=== PATIENT | female | born 1945 | race Caucasian/White ===

== ENCOUNTER 2018-06-10 09:59 | Inpatient (IN) ==
--- NOTE | 2018-06-10 10:24 | ED ---
HPI General Chief Complaint: Fall Stated Complaint: confusion/Fall/Evac Time Seen by Provider: 06/10/18 10:14 Source: patient Mode of arrival: EMS Limitations: altered mental status History of Present Illness HPI narrative: The patient is a 72-year-old female who presents to the emergency department via EMS for altered mental status. EMS states that the patient was found lying on her floor, in the bedroom, with altered mental status. EMS states that the patient's neighbor noted she was altered and lying on the floor, duration unknown. The patient apparently has another individual who lives in a house, however, the individual is currently located in [place]. The patient denies any physical complaints except for bilateral knee pain. The patient denies falling and denies having an altered mental status. However , the patient is a somewhat limited historian he thinks the year is 2020 and does not know the current month. She denies any headache, chest pain, shortness breath, nausea, vomiting, or abdominal pain. MD complaint: altered mental status Onset (ago): unknown Timing confirmed by: other (EMS states that the patient's neighbor noted she was altered) Severity: moderate Consistency of symptoms: unknown Related Data Home Medications Medication Instructions Recorded Confirmed apixaban [Eliquis] 5 mg PO BID 06/10/18 06/10/18 atorvastatin 10 mg PO DAILY 06/10/18 06/10/18 enalapril maleate 2.5 mg PO DAILY 06/10/18 06/10/18 gabapentin 300 mg PO DAILY 06/10/18 06/10/18 insulin NPH isoph U-100 human 25 unit SUB-Q QAM 06/10/18 06/10/18 [Novolin N NPH U-100 Insulin] insulin NPH isoph U-100 human 30 unit SUB-Q QPM 06/10/18 06/10/18 [Novolin N NPH U-100 Insulin] metoprolol tartrate 25 mg PO DAILY 06/10/18 06/10/18 Allergies Allergy/AdvReac Type Severity Reaction Status Date / Time penicillin G Allergy Intermediate ITCHING Verified 06/10/18 10:27 Sulfa (Sulfonamide AdvReac Intermediate ITCHING Verified 06/10/18 10:27 Antibiotics) *MDRO Multi-Drug Resistant AdvReac Unknown UNKNOWN Uncoded 06/10/18 10:27 Organism Review of Systems Except as stated in HPI: all other systems reviewed are negative ENT Denies headache(s) and Denies neck pain Cardiovascular Denies chest pain and Denies dyspnea Respiratory Denies dyspnea Gastrointestinal Denies abdominal pain, Denies nausea and Denies vomiting Genitourinary Denies dysuria Musculoskeletal Reports other [facility] Medical History Medical History CVA (cerebral vascular accident) (Acute) Coronary bypass graft mechanical complication (Acute) Diabetes (Acute) BISHOP PAIUTE (hard of hearing) (Acute) Social History Social History Substance History: No History of Abuse Second Hand Smoke Exposure: No Smoking Status: Never smoker How Often Do You Have a Drink Containing Alcohol: Never Recent Travel in [facility] within the Last 8 Weeks: No Recent Out of Country Travel within the Last 8 Weeks: No Exam Narrative Exam Narrative: GENERAL: Awake, alert, 72-year-old female appears her stated age and is in no acute respiratory distress. SKIN: Focused skin assessment warm/dry. HEAD: Atraumatic. Normocephalic. EYES: Pupils equal and round. 3 mm bilateral and reactive. ENT: No nasal bleeding or discharge. Slightly dry mucous membranes. NECK: Trachea midline. No JVD. CARDIOVASCULAR: Regular rate and rhythm. No murmur appreciated. Well-healed sternal scar. RESPIRATORY: No accessory muscle use. Clear to auscultation. Breath sounds equal bilaterally. GASTROINTESTINAL: Abdomen soft, non-tender, nondistended. No rebound tenderness. MUSCULOSKELETAL: Old appearing ecchymosis over the anterior aspect of the right knee. Mild tenderness of the knees bilateral. No tenderness over the pelvis. She is able to flex the hips only to 30 secondary to knee pain. Positive distal pulses. Well-healed scar the medial aspect the left lower extremity from vein harvesting. NEUROLOGICAL: Awake and alert. No obvious cranial nerve deficits. Motor grossly within normal limits. Normal speech. Patient is oriented to name, but does not know the current month, year, or gizzard peeler. She is able to tell me her doctor is Dr. Robbie Dunn. PSYCHIATRIC: Appropriate mood and affect; insight and judgment normal. Course Initial Documented Vital Signs Temperature 98.5 F 06/10/18 10:10 Pulse Rate 114 H 06/10/18 10:10 Respiratory Rate 18 06/10/18 10:10 Blood Pressure 118/75 06/10/18 10:10 Pulse Oximetry 96 06/10/18 10:10 Last Documented Vital Signs Temperature 98.5 F 06/10/18 10:18 Pulse Rate 113 H 06/10/18 10:18 Respiratory Rate 18 06/10/18 10:18 Blood Pressure 118/75 06/10/18 10:18 Pulse Oximetry 96 06/10/18 10:51 Medical Decision Making MDM Narrative Medical decision making narrative: IV was established, labs are drawn and sent, and the patient was placed on cardiac telemetry monitoring and continuous pulse oximetry monitoring. EKG was ordered and interpreted. Chest x-ray, pelvis x- ray, and bilateral knee x-rays were obtained. CT the brain was obtained as the patient has an altered mental status, was found on the floor, and takes Eliquis.. UA was sent to lab. CT the brain is negative. UA is unremarkable. White count is elevated at 16, lactic acid elevated at 2.9, CPK elevated at 1684 , troponin elevated at 1.9. Chest x-ray reveals a left lower lobe pneumonia. Moderate left knee effusion. The patient was covered for community-acquired pneumonia with Rocephin and Zithromax. The patient does have rhabdomyolysis, will be admitted. The patient was administered aspirin [address] the brain was negative. The patient's primary physician is Dr. Dunn, [facility] Differential Diagnosis Differential Diagnosis: Differential diagnosis includes delirium, hyponatremia, dehydration, UTI, subdural hemorrhage, altered mental status, fracture. Medical Records Medical records reviewed: Yes I reviewed the patient's medical records. Lab Data Lab results reviewed: Yes I reviewed the patient's lab results. Lab results narrative: The patient's white count is elevated to 16, lactic acid is elevated 2.9, CK 1684, troponin 1.9, consistent with rhabdomyolysis. Result diagrams: 06/10/18 10:50 06/10/18 10:50 Lab Results 06/10/18 06/10/18 06/10/18 Range/Units 10:50 10:50 10:50 WBC 16.1 H (4.0-11.0) th/mm3 RBC 4.75 (4.00-5.30) mil/mm3 Hgb 13.2 (11.6-15.3) gm/dL Hct 39.9 (35.0-46.0) % MCV 83.9 (80.0-100.0) fL MCH 27.7 (27.0-34.0) pg MCHC 33.0 (32.0-36.0) % RDW 15.2 (11.6-17.2) % Plt Count 271 (150-450) th/mm3 MPV 10.5 (7.0-11.0) fL Neut % (Auto) 84.8 H (16.0-70.0) % Lymph % (Auto) 8.9 L (9.0-44.0) % [place] % (Auto) 5.9 (0.0-8.0) % Eos % (Auto) 0.0 (0.0-4.0) % Baso % (Auto) 0.4 (0.0-2.0) % Neut # (Auto) 13.6 H (1.8-7.7) th/mm3 Lymph # (Auto) 1.4 (1.0-4.8) th/mm3 [place] # (Auto) 0.9 (0.0-0.9) th/mm3 Eos # (Auto) 0.0 (0.0-0.4) th/mm3 Baso # (Auto) 0.1 (0.0-0.2) th/mm3 WBC Differential . Differential Comment Auto diff final PT 11.8 H (9.8-11.6) sec INR 1.2 Ratio APTT 31.7 H (24.3-30.1) sec Sodium (136-145) meq/L Potassium (3.5-5.1) meq/L Chloride (98-107) meq/L Carbon Dioxide (21.0-32.0) meq/L Anion Gap (5-15) meq/L BUN (7-18) mg/dL Creatinine (0.50-1.00) mg/dL Estimated GFR (>89) mL/min Random Glucose (74-106) mg/dL Lactic Acid (0.4-2.0) mmol/L Calcium (8.5-10.1) mg/dL Total Bilirubin (0.2-1.0) mg/dL AST (15-37) U/L ALT (10-53) U/L Alkaline Phosphatase (45-117) U/L Ammonia (11-32) mcmol/L Total Creatine Kinase (26-192) U/L Troponin I (0.02-0.05) ng/mL Total Protein (6.4-8.2) g/dL Albumin (3.4-5.0) g/dL TSH Cancelled Urine Color (Yellw/Straw) Urine Clarity (Clear) Urine pH (5.0-8.5) Ur Specific Dell (1.002-1.035) Urine Protein (Neg-Trace) mg/dL Urine Glucose (UA) (Negative) mg/dL Urine Ketones (Negative) mg/dL Urine Occult Blood (Negative) Urine Nitrate (Negative) Urine Bilirubin (Negative) Urine Urobilinogen (Less than 2) mg/dL Ur Leukocyte Esterase (Negative) Urine RBC (0-3) /hpf Urine WBC (0-5) /hpf Ur Squamous Epith Cells (0-5) /hpf Urine Mucus (Occasional) /lpf Micro UA Comment Urine Culture Comments Serum Alcohol Cancelled 06/10/18 06/10/18 06/10/18 Range/Units 10:50 10:55 10:55 WBC (4.0-11.0) th/mm3 RBC (4.00-5.30) mil/mm3 Hgb (11.6-15.3) gm/dL Hct (35.0-46.0) % MCV (80.0-100.0) fL MCH (27.0-34.0) pg MCHC (32.0-36.0) % RDW (11.6-17.2) % Plt Count (150-450) th/mm3 MPV (7.0-11.0) fL Neut % (Auto) (16.0-70.0) % Lymph % (Auto) (9.0-44.0) % [place] % (Auto) (0.0-8.0) % Eos % (Auto) (0.0-4.0) % Baso % (Auto) (0.0-2.0) % Neut # (Auto) (1.8-7.7) th/mm3 Lymph # (Auto) (1.0-4.8) th/mm3 [place] # (Auto) (0.0-0.9) th/mm3 Eos # (Auto) (0.0-0.4) th/mm3 Baso # (Auto) (0.0-0.2) th/mm3 WBC Differential Differential Comment PT (9.8-11.6) sec INR Ratio APTT (24.3-30.1) sec Sodium 140 (136-145) meq/L Potassium 3.8 (3.5-5.1) meq/L Chloride 106 (98-107) meq/L Carbon Dioxide 20.9 L (21.0-32.0) meq/L Anion Gap 13 (5-15) meq/L BUN 21 H (7-18) mg/dL Creatinine 1.02 H (0.50-1.00) mg/dL Estimated GFR 53 L (>89) mL/min Random Glucose 246 H (74-106) mg/dL Lactic Acid 2.9 H (0.4-2.0) mmol/L Calcium 9.4 (8.5-10.1) mg/dL Total Bilirubin 1.3 H (0.2-1.0) mg/dL AST 64 H (15-37) U/L ALT 32 (10-53) U/L Alkaline Phosphatase 94 (45-117) U/L Ammonia Less than 10 L (11-32) mcmol/L Total Creatine Kinase 1684 H (26-192) U/L Troponin I 1.60 H* (0.02-0.05) ng/mL Total Protein 8.1 (6.4-8.2) g/dL Albumin 3.7 (3.4-5.0) g/dL TSH 1.730 Urine Color (Yellw/Straw) Urine Clarity (Clear) Urine pH (5.0-8.5) Ur Specific Dell (1.002-1.035) Urine Protein (Neg-Trace) mg/dL Urine Glucose (UA) (Negative) mg/dL Urine Ketones (Negative) mg/dL Urine Occult Blood (Negative) Urine Nitrate (Negative) Urine Bilirubin (Negative) Urine Urobilinogen (Less than 2) mg/dL Ur Leukocyte Esterase (Negative) Urine RBC (0-3) /hpf Urine WBC (0-5) /hpf Ur Squamous Epith Cells (0-5) /hpf Urine Mucus (Occasional) /lpf Micro UA Comment Urine Culture Comments Serum Alcohol Less than 3 /12/18 Range/Units 11:05 WBC (4.0-11.0) th/mm3 RBC (4.00-5.30) mil/mm3 Hgb (11.6-15.3) gm/dL Hct (35.0-46.0) % MCV (80.0-100.0) fL MCH (27.0-34.0) pg MCHC (32.0-36.0) % RDW (11.6-17.2) % Plt Count (150-450) th/mm3 MPV (7.0-11.0) fL Neut % (Auto) (16.0-70.0) % Lymph % (Auto) (9.0-44.0) % [place] % (Auto) (0.0-8.0) % Eos % (Auto) (0.0-4.0) % Baso % (Auto) (0.0-2.0) % Neut # (Auto) (1.8-7.7) th/mm3 Lymph # (Auto) (1.0-4.8) th/mm3 [place] # (Auto) (0.0-0.9) th/mm3 Eos # (Auto) (0.0-0.4) th/mm3 Baso # (Auto) (0.0-0.2) th/mm3 WBC Differential Differential Comment PT (9.8-11.6) sec INR Ratio APTT (24.3-30.1) sec Sodium (136-145) meq/L Potassium (3.5-5.1) meq/L Chloride (98-107) meq/L Carbon Dioxide (21.0-32.0) meq/L Anion Gap (5-15) meq/L BUN (7-18) mg/dL Creatinine (0.50-1.00) mg/dL Estimated GFR (>89) mL/min Random Glucose (74-106) mg/dL Lactic Acid (0.4-2.0) mmol/L Calcium (8.5-10.1) mg/dL Total Bilirubin (0.2-1.0) mg/dL AST (15-37) U/L ALT (10-53) U/L Alkaline Phosphatase (45-117) U/L Ammonia (11-32) mcmol/L Total Creatine Kinase (26-192) U/L Troponin I (0.02-0.05) ng/mL Total Protein (6.4-8.2) g/dL Albumin (3.4-5.0) g/dL TSH Urine Color Yellow (Yellw/Straw) Urine Clarity Hazy H (Clear) Urine pH 5.0 (5.0-8.5) Ur Specific Dell 1.024 (1.002-1.035) Urine Protein 100 H (Neg-Trace) mg/dL Urine Glucose (UA) 500 or greater (Negative) mg/dL Urine Ketones 20 (Negative) mg/dL Urine Occult Blood Moderate H (Negative) Urine Nitrate Negative (Negative) Urine Bilirubin Negative (Negative) Urine Urobilinogen 2.0 H (Less than 2) mg/dL Ur Leukocyte Esterase Negative (Negative) Urine RBC 3 (0-3) /hpf Urine WBC 3 (0-5) /hpf Ur Squamous Epith Cells <1 (0-5) /hpf Urine Mucus Few H (Occasional) /lpf Micro UA Comment Cath-culture not ind Urine Culture Comments Cath-cult not ind Serum Alcohol Imaging Data Radiologist's impression: ITS Impressions Chest X-Ray 06/10/18 10:14 CONCLUSION: 1. There is some parenchymal changes in the left lung base suggestive of infiltrate. There is some haziness overlying the left hemithorax suggestive of an effusion. 2. There is some pulmonary venous congestion. Head CT 06/10/18 10:14 CONCLUSION: 1. No focal or acute intracranial hemorrhage. 2. 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 3. Bilateral cortical atrophy. Knee X-Ray 06/10/18 10:14 CONCLUSION: Unremarkable plain films for patient's age. No acute fracture or joint dislocation. Knee X-Ray 06/10/18 10:14 CONCLUSION: 1. Moderate joint effusion. 2. Osteopenia of the bony structures. No definite acute fracture or joint dislocation. Pelvis X-Ray 06/10/18 10:14 CONCLUSION: No acute fracture or joint dislocation. ECG Data EKG Prior to Arrival: No Attestation: I personally reviewed and interpreted this ECG as follows: Interpretation: EKG reveals sinus arrhythmia with a rate of 112 with nonspecific T-wave changes versus atrial fibrillation with RVR. There does appear to be P waves. Discharge Plan Discharge Disposition Patient Disposition: 30 Still Patient Discharge Condition Condition: Stable Discharge Details Diagnosis: Pneumonia, Acidosis, lactic, Rhabdomyolysis, Delirium Physicians Team ED Provider: Joselito Sharpe Rxs /Orders / Referrals /Forms Prescriptions: No Action atorvastatin 10 mg Tablet 10 mg PO DAILY RF: 0 enalapril maleate 2.5 mg Tablet 2.5 mg PO DAILY RF: 0 insulin NPH isoph U-100 human [Novolin N NPH U-100 Insulin] 100 unit/mL Suspension 30 unit SUB-Q QPM RF: 0 insulin NPH isoph U-100 human [Novolin N NPH U-100 Insulin] 100 unit/mL Suspension 25 unit SUB-Q QAM RF: 0 gabapentin 300 mg Capsule 300 mg PO DAILY RF: 0 metoprolol tartrate 25 mg Tablet 25 mg PO DAILY RF: 0 apixaban [Eliquis] 5 mg Tablet 5 mg PO BID RF: 0 Discharge Interventions Interventions: Vital Signs Last Done: 06/10/18 10:18 Status ED Status: With Doctor
[2018-06-10] MEDS: Sod Chloride 0.9% Inj 1,000 ML IV.CONT SCH ×3 (10:48→18:27)
[2018-06-10 11:27] LABS: Baso # (Auto) 0.1 th/mm3 (0.0-0.2); Baso % (Auto) 0.4 % (0.0-2.0); Hematocrit 39.9 % (35.0-46.0); Hemoglobin 13.2 gm/dL (11.6-15.3); Lymph # (Auto) 1.4 th/mm3 (1.0-4.8); Lymph % (Auto) 8.9 % (9.0-44.0); Mean Corpuscular Hemoglobin 27.7 pg (27.0-34.0); Mean Corpuscular Volume 83.9 fL (80.0-100.0); Mean Platelet Volume 10.5 fL (7.0-11.0); Mono # (Auto) 0.9 th/mm3 (0.0-0.9); Mono % (Auto) 5.9 % (0.0-8.0); Neut # (Auto) 13.6 th/mm3 (1.8-7.7); Neut % (Auto) 84.8 % (16.0-70.0); Platelet Count 271 th/mm3 (150-450); Red Blood Count 4.75 mil/mm3 (4.00-5.30); Red Cell Distribution Width 15.2 % (11.6-17.2); White Blood Count 16.1 th/mm3 (4.0-11.0)
[2018-06-10 11:31] LABS: Bilirubin,Urine Negative (Negative); Clarity,Urine Hazy (Clear); Color,Urine Yellow (Yellw/Straw); Glucose,Urine (UA) 500 or Greater mg/dL (Negative); Leukocyte Esterase,Urine Negative (Negative); Mucus,Urine Few /lpf (Occasional); Nitrite,Urine Negative (Negative); Specific Gravity,Urine 1.024 (1.002-1.035); Squamous Epithelial Cell,Urine <1 /hpf (0-5)
[2018-06-10 11:40] LABS: Alanine Aminotransferase 32 U/L (10-53); Albumin 3.7 g/dL (3.4-5.0); Anion Gap 13 meq/L (5-15); Aspartate Aminotransferase 64 U/L (15-37); Blood Urea Nitrogen 21 mg/dL (7-18); Calcium 9.4 mg/dL (8.5-10.1); Carbon Dioxide 20.9 meq/L (21.0-32.0); Chloride 106 meq/L (98-107); Glomerular Filtration Rate 53 mL/min (>89); Glucose,Random 246 mg/dL (74-106); Potassium 3.8 meq/L (3.5-5.1); Sodium 140 meq/L (136-145)
[2018-06-10 11:42] LABS: Activated Partial Thrombo Time 31.7 sec (24.3-30.1); INR 1.2 Ratio; Prothrombin Time 11.8 sec (9.8-11.6)
[2018-06-10] MEDS ORDERED: Sod Chloride 0.9% Inj 1,000 ML IV.SIG ONE (11:51)
[2018-06-10 11:55] LABS: Alkaline Phosphatase 94 U/L (45-117); Creatine Kinase 1684 U/L (26-192); Total Protein 8.1 g/dL (6.4-8.2)
--- NOTE | 2018-06-10 11:57 | XR ---
EXAM DATE: 06/10/2018 11:45 AM EDT AGE/SEX: 72 years / Female INDICATIONS: Short of breath. Fall two days ago. CLINICAL DATA: This is the patient's initial encounter. Patient reports that signs and symptoms have been present for 1 day and indicates a pain score of 0/10. MEDICAL/SURGICAL HISTORY: None. CABG. COMPARISON: No prior exams available for comparison. FINDINGS: On today's examination there appears to be an infiltrate in the left lung base. There is some hazines s overlying the left hemithorax suggestive of an effusion. The right lung is grossly clear. There swathi ears to be evidence of some pulmonary venous congestion. There is evidence of previous cardiothoracic surgery. The heart size is within normal limits. The bony structures are grossly intact. CONCLUSION: 1. There is some parenchymal changes in the left lung base suggestive of infiltrate. There is some h aziness overlying the left hemithorax suggestive of an effusion. 2. There is some pulmonary venous congestion. Electronically signed by: Dawit Mayorga MD 06/10/2018 11:56 AM EDT
--- NOTE | 2018-06-10 11:59 | CT ---
EXAM DATE: 06/10/2018 11:46 AM EDT AGE/SEX: 72 years / Female INDICATIONS: Altered mental status. CLINICAL DATA: This is the patient's initial encounter. Patient reports that signs and symptoms have been present for 1 day and indicates a pain score of 0/10. MEDICAL/SURGICAL HISTORY: Cardiovascular disease. Diabetes. CABG. RADIATION DOSE: 33.74 CTDI (mGy) COMPARISON: No prior exams available for comparison. TECHNIQUE: CT of the head without contrast. Using automated exposure control and adjustment of the mA and/or kV according to patient size, radiation dose was kept as low as reasonably achievable to ob tain optimal diagnostic quality images. DICOM format image data is available electronically for revi ew and comparison. FINDINGS: Cerebrum: The ventricles are normal for age. There is bilateral cortical atrophy. No evidence of mi dline shift, mass lesion, hemorrhage or acute infarction. There is a prominent area of encephalomalac ia involving the right occipital lobe characteristic of an old infarction. No extraaxial fluid colle ctions are seen. Posterior Fossa: The cerebellum and brainstem are intact. The 4th ventricle is midline. The cerebe llopontine angle is unremarkable. Extracranial: The visualized portion of the orbits is intact. Skull: The calvaria is intact. No evidence of skull fracture. CONCLUSION: 1. No focal or acute intracranial hemorrhage. 2. 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 3. Bilateral cortical atrophy. Electronically signed by: Dawit Mayorga MD 06/10/2018 11:58 AM EDT
--- NOTE | 2018-06-10 12:00 | XR ---
EXAM DATE: 06/10/2018 11:47 AM EDT AGE/SEX: 72 years / Female INDICATIONS: Fall two days ago. CLINICAL DATA: This is the patient's initial encounter. Patient reports that signs and symptoms have been present for 2 days and indicates a pain score of 3/10. MEDICAL/SURGICAL HISTORY: None. CABG. COMPARISON: No prior exams available for comparison. FINDINGS: There is osteopenia of the bony structures. No definite acute bony fracture or joint dislocation is d emonstrated. There does appear to be a moderate joint effusion present. The patella is grossly intact . Surgical clips are seen in the soft tissues. CONCLUSION: 1. Moderate joint effusion. 2. Osteopenia of the bony structures. No definite acute fracture or joint dislocation. Electronically signed by: Dawit Mayorga MD 06/10/2018 11:59 AM EDT
--- NOTE | 2018-06-10 12:01 | XR ---
EXAM DATE: 06/10/2018 11:46 AM EDT AGE/SEX: 72 years / Female INDICATIONS: Fall two days ago. CLINICAL DATA: This is the patient's initial encounter. Patient reports that signs and symptoms have been present for 2 days and indicates a pain score of 3/10. MEDICAL/SURGICAL HISTORY: None. CABG. COMPARISON: No prior exams available for comparison. FINDINGS: Bony structures are intact and in normal alignment. Joints are intact without dislocation or signifi cant arthropathy. Osseous density is osteopenic.. Soft tissues are unremarkable. No radiopaque for eign bodies seen. No evidence of joint effusion. CONCLUSION: Unremarkable plain films for patient's age. No acute fracture or joint dislocation. Electronically signed by: Dawit Mayorga MD 06/10/2018 12:00 PM EDT
--- NOTE | 2018-06-10 12:02 | XR ---
EXAM DATE: 06/10/2018 11:47 AM EDT AGE/SEX: 72 years / Female INDICATIONS: Fall two days ago. CLINICAL DATA: This is the patient's initial encounter. Patient reports that signs and symptoms have been present for 2 days and indicates a pain score of 3/10. MEDICAL/SURGICAL HISTORY: None. CABG. COMPARISON: No prior exams available for comparison. FINDINGS: Examination of the pelvis demonstrates no evidence of fracture or dislocation. There is good alignmen t at the hip joints. Bony mineralization is osteopenic. There is no widening of the sacroiliac joints . No foreign body is identified. There are some degenerative changes involving the lower lumbar spin e. CONCLUSION: No acute fracture or joint dislocation. Electronically signed by: Dawit Mayorga MD 06/10/2018 12:01 PM EDT
[2018-06-10] MEDS ORDERED: Azithromycin Inj 500 MG in Sodium Chlor 0.9% Inj 250 ML IV.SIG ONE (12:16)
[2018-06-10 12:17] LABS: CKMB Percent 1.1 % (0.0-4.0); Creatine Kinase MB 19.1 ng/mL (0.5-3.6)
[2018-06-10] MEDS ORDERED: Temazepam 15 MG Capsule PO PRN (12:48)
[2018-06-10] MEDS ORDERED: Bisacodyl 10 MG Supp RECTAL PRN (12:48)
[2018-06-10] MEDS: Azithromycin Inj 500 MG in Sodium Chlor 0.9% Inj 250 ML IV.SIG SCH (14:30)
--- NOTE | 2018-06-10 15:16 | P.HP ---
History of Present Illness Primary Care Physician: Robbie Dunn MD Chief Complaint: Altered Mental Status History of Present Illness: patient is a 72-year-old female with a pmhx of AK, CVA, A-fib, DM who presents to the emergency department via EMS for altered mental status. history was obtained from EMS and Friend, staff, and reviewed pervious records. EMS states that the patient was found lying on her floor, in her own feces, in the bedroom, with altered mental status. EMS states that the patient's neighbor noted she was altered and lying on the floor, duration unknown. Patient currently only reports bilateral knee pain and L hip pain. Pt is a limited historian and thinks the year is 2020 and does not know the current month. She denies falling and denies having an altered mental status. Pt knows her first name and is oriented to place. Pt's baseline is AOAx4. She states" I was sitting on the floor to change my clothe since I had wet my pants". She denies any Fever, chills, headache, Change in vision, chest pain, shortness breath, nausea, vomiting, muscle pain, or abdominal pain. pt reports hx of urinary incontinence but denies dysuria, hematuria, or polyuria. Pt's previous charts were reviewed. Inpatient Certification: I certify that the inpatient services were ordered in accordance with Medicare regulations governing the order. This includes certification that hospital inpatient services are reasonable and necessary and in the case of services not specified as inpatient-only under 42 CFR 419.22(n), that they are appropriately provided as inpatient services in accordance to with the 2-midnight benchmark under 43 CFR 412.3(e) Estimated Total Length of Stay (Days): 5 Plans for Post Hospital Care: Not yet determined Review of Systems Review of System negative except as stated in HPI All other systems reviewed negative except as stated in HPI, other PMFSH - History History Provided By: [employer]iter / EMT - Medical History Medical History: Medical History (Last Reviewed 06/10/18 @ 16:10 by Mary White MD) CVA (cerebral vascular accident) Coronary bypass graft mechanical complication Diabetes KOI (hard of hearing) - Tobacco History Second Hand Smoke Exposure: No Smoking Status: Never smoker - Alcohol History How Often Do You Have a Drink Containing Alcohol: Never - Substance Use History Substance History: No History of Abuse - Travel History Recent Travel in the [place] Within the Last 8 Weeks: No Recent Travel Out of the Country Within the Last 8 Weeks: No - Immunization History Tetanus Immunization: Unable to Assess Hx Influenza Vaccine This Season: Unable to Assess Medications and Allergies Active Medications: Active Medications Acetaminophen (Tylenol) 650 mg PO Q4H PRN PRN Reason: Temp > 100.4 Al Hydroxide/Mg Hydroxide (Milk Of Magnesia Liq) 30 ml PO Q12H PRN PRN Reason: Mild Constipation Apixaban (Eliquis) 5 mg PO BID [facility] Atorvastatin Calcium (Lipitor) 10 mg PO DAILY [facility] Bisacodyl (Dulcolax Supp) 10 mg RECTAL DAILY PRN PRN Reason: SEVERE CONSITIPATION Enalapril Maleate (Vasotec) 2.5 mg PO DAILY [facility] Sodium Chloride (Ns Inj) 1,000 mls @ 125 mls/hr IV.CONT .Q8H [facility] Last Admin: 06/10/18 10:48 Dose: 125 mls/hr Sodium Chloride (Ns Inj) 1,000 mls @ 100 mls/hr IV.CONT .Q10H [facility] Ceftriaxone Sodium 1,000 mg/ (Sodium Chloride) 100 mls @ 200 mls/hr IV.SIG Q24H [facility] Last Admin: 06/10/18 14:31 Dose: Not Given Azithromycin 500 mg/ Sodium (Chloride) 250 mls @ 250 mls/hr IV.SIG Q24H [facility] Last Admin: 06/10/18 14:30 Dose: Not Given Lactulose (Lactulose Liq) 30 ml PO DAILY PRN PRN Reason: SEVERE CONSITIPATION Metoclopramide HCl (Reglan Inj) 5 mg IV.PUSH Q6HR PRN; Protocol PRN Reason: NAUSEA OR VOMITING Metoprolol Tartrate (Lopressor) 25 mg PO DAILY [facility] Senna/Docusate Sodium (Megha-Colace) 1 tab PO BID [facility] Sennosides (Senokot) 17.2 mg PO Q12H PRN PRN Reason: Moderate Constipation Sodium Chloride (Ns Flush) 2 ml IV.FLUSH PRN PRN PRN Reason: FLUSH AFTER USING IV ACCESS Temazepam (Restoril) 15 mg PO HS PRN PRN Reason: INSOMNIA Allergies Allergy/AdvReac Type Severity Reaction Status Date / Time penicillin G Allergy Intermediate ITCHING Verified 06/10/18 10:27 Sulfa (Sulfonamide AdvReac Intermediate ITCHING Verified 06/10/18 10:27 Antibiotics) *MDRO Multi-Drug Resistant AdvReac Unknown UNKNOWN Uncoded 06/10/18 10:27 Organism Home Medications Medication Instructions Recorded Confirmed Type apixaban [Eliquis] 5 mg PO BID 06/10/18 06/10/18 History atorvastatin 10 mg PO DAILY 06/10/18 06/10/18 History enalapril maleate 2.5 mg PO DAILY 06/10/18 06/10/18 History gabapentin 300 mg PO DAILY 06/10/18 06/10/18 History insulin NPH isoph U-100 human 25 unit SUB-Q QAM 06/10/18 06/10/18 History [Novolin N NPH U-100 Insulin] insulin NPH isoph U-100 human 30 unit SUB-Q QPM 06/10/18 06/10/18 History [Novolin N NPH U-100 Insulin] metoprolol tartrate 25 mg PO DAILY 06/10/18 06/10/18 History Exam Vital signs: Vital Signs 06/10/18 10:10 06/10/18 10:18 06/10/18 10:51 Temperature 98.5 F 98.5 F Pulse Rate 114 H 113 H Respiratory Rate 18 18 Blood Pressure 118/75 118/75 Pulse Oximetry 96 96 96 06/10/18 12:42 Temperature Pulse Rate 112 H Respiratory Rate 18 Blood Pressure 133/99 H Pulse Oximetry 96 Intake & Output 06/09/18 06/10/18 06/10/18 18:59 06:59 18:59 Intake Total 2099 Balance 2099 Weight 61.235 kg Intake: IV 2099 Azithromycin Inj 500 MG In NS 1000 / 1000 Inj 250 ML @ 250 mls/hr IV.SIG ONCE ONE Rx#:[id number] NS Inj 1,000 ML @ Wide Open IV. 1000 / 1000 SIG BOLUS ONE Rx#:[id number] Rocephin Inj 1,000 MG In NS Inj 100 / 100 100 ML @ 200 mls/hr IV.SIG ONCE ONE Rx#:[id number] Narrative: GENERAL: Well developed, well nourished female in no acute distress SKIN: Warm and dry. HEAD: Atraumatic. Normocephalic. EYES: Pupils equal and round. No scleral icterus. No injection or drainage. ENT: No nasal bleeding or discharge. Mucous membranes pink and moist. NECK: Trachea midline. No JVD. CARDIOVASCULAR: Regular rate and rhythm. RESPIRATORY: No accessory muscle use. Clear to auscultation. Breath sounds equal bilaterally. GASTROINTESTINAL: Abdomen soft, non-tender, nondistended. Hepatic and splenic margins not palpable. MUSCULOSKELETAL: Extremities without clubbing, cyanosis, or edema. No obvious deformities. NEUROLOGICAL: Awake and alert. Pt appears somewhat confused. No obvious cranial nerve deficits. Motor grossly within normal limits. Five out of 5 muscle strength in the arms and legs. Normal speech. PSYCHIATRIC: Appropriate mood and affect; insight and judgment normal. Results - Labs CBC & Chem 7: 06/10/18 10:50 06/10/18 10:50 Labs: Laboratory Results - last 24 hr 06/10/18 06/10/18 06/10/18 10:50 10:50 10:50 WBC 16.1 H RBC 4.75 Hgb 13.2 Hct 39.9 MCV 83.9 MCH 27.7 MCHC 33.0 RDW 15.2 Plt Count 271 MPV 10.5 Neut % (Auto) 84.8 H Lymph % (Auto) 8.9 L Centre % (Auto) 5.9 Eos % (Auto) 0.0 Baso % (Auto) 0.4 Neut # (Auto) 13.6 H Lymph # (Auto) 1.4 Centre # (Auto) 0.9 Eos # (Auto) 0.0 Baso # (Auto) 0.1 WBC Differential . Differential Comment Auto diff final PT 11.8 H INR 1.2 APTT 31.7 H Sodium Potassium Chloride Carbon Dioxide Anion Gap BUN Creatinine Estimated GFR Random Glucose Lactic Acid Calcium Total Bilirubin AST ALT Alkaline Phosphatase Ammonia Total Creatine Kinase CK-MB (CK-2) CK-MB (CK-2) % Troponin I Total Protein Albumin TSH Cancelled Urine Color Urine Clarity Urine pH Ur Specific [place] Urine Protein Urine Glucose (UA) Urine Ketones Urine Occult Blood Urine Nitrate Urine Bilirubin Urine Urobilinogen Ur Leukocyte Esterase Urine RBC Urine WBC Ur Squamous Epith Cells Urine Mucus Micro UA Comment Urine Culture Comments Serum Alcohol Cancelled 06/10/18 06/10/18 06/10/18 10:50 10:55 10:55 WBC RBC Hgb Hct MCV MCH MCHC RDW Plt Count MPV Neut % (Auto) Lymph % (Auto) Centre % (Auto) Eos % (Auto) Baso % (Auto) Neut # (Auto) Lymph # (Auto) Centre # (Auto) Eos # (Auto) Baso # (Auto) WBC Differential Differential Comment PT INR APTT Sodium 140 Potassium 3.8 Chloride 106 Carbon Dioxide 20.9 L Anion Gap 13 BUN 21 H Creatinine 1.02 H Estimated GFR 53 L Random Glucose 246 H Lactic Acid 2.9 H Calcium 9.4 Total Bilirubin 1.3 H AST 64 H ALT 32 Alkaline Phosphatase 94 Ammonia Less than 10 L Total Creatine Kinase 1684 H CK-MB (CK-2) 19.1 H CK-MB (CK-2) % 1.1 Troponin I 1.60 H* Total Protein 8.1 Albumin 3.7 TSH 1.730 Urine Color Urine Clarity Urine pH Ur Specific [place] Urine Protein Urine Glucose (UA) Urine Ketones Urine Occult Blood Urine Nitrate Urine Bilirubin Urine Urobilinogen Ur Leukocyte Esterase Urine RBC Urine WBC Ur Squamous Epith Cells Urine Mucus Micro UA Comment Urine Culture Comments Serum Alcohol Less than 3 06/10/18 11:05 WBC RBC Hgb Hct MCV MCH MCHC RDW Plt Count MPV Neut % (Auto) Lymph % (Auto) Centre % (Auto) Eos % (Auto) Baso % (Auto) Neut # (Auto) Lymph # (Auto) Centre # (Auto) Eos # (Auto) Baso # (Auto) WBC Differential Differential Comment PT INR APTT Sodium Potassium Chloride Carbon Dioxide Anion Gap BUN Creatinine Estimated GFR Random Glucose Lactic Acid Calcium Total Bilirubin AST ALT Alkaline Phosphatase Ammonia Total Creatine Kinase CK-MB (CK-2) CK-MB (CK-2) % Troponin I Total Protein Albumin TSH Urine Color Yellow Urine Clarity Hazy H Urine pH 5.0 Ur Specific [place] 1.024 Urine Protein 100 H Urine Glucose (UA) 500 or greater Urine Ketones 20 Urine Occult Blood Moderate H Urine Nitrate Negative Urine Bilirubin Negative Urine Urobilinogen 2.0 H Ur Leukocyte Esterase Negative Urine RBC 3 Urine WBC 3 Ur Squamous Epith Cells <1 Urine Mucus Few H Micro UA Comment Cath-culture not ind Urine Culture Comments Cath-cult not ind Serum Alcohol - Imaging Impressions Chest X-Ray 06/10/18 10:14 CONCLUSION: 1. There is some parenchymal changes in the left lung base suggestive of infiltrate. There is some haziness overlying the left hemithorax suggestive of an effusion. 2. There is some pulmonary venous congestion. Head CT 06/10/18 10:14 CONCLUSION: 1. No focal or acute intracranial hemorrhage. 2. 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 3. Bilateral cortical atrophy. Knee X-Ray 06/10/18 10:14 CONCLUSION: Unremarkable plain films for patient's age. No acute fracture or joint dislocation. Knee X-Ray 06/10/18 10:14 CONCLUSION: 1. Moderate joint effusion. 2. Osteopenia of the bony structures. No definite acute fracture or joint dislocation. Pelvis X-Ray 06/10/18 10:14 CONCLUSION: No acute fracture or joint dislocation. Caprini VTE Risk Assessment Caprini Risk Assessment Model: Point Value = 1 Point Value = 2 Point Value = 3 Point Value = 5 Age 41-60 Minor surgery BMI > 25 kg/m2 Swollen legs Varicose veins or History of unexplained or recurrent spontaneous Oral contraceptives or hormone replacement Sepsis (< 1 month) Serious lung disease, including pneumonia (< 1 month) Abnormal pulmonary function Acute myocardial infarction Congestive heart failure (< 1 month) History of inflammatory bowel disease Medical patient at bed rest Age 61-74 Arthroscopic surgery Major open surgery (> 45 min) Laparoscopic surgery (> 45 min) Malignancy Confined to bed (> 72 hours) Immobilizing plaster cast Central venous access Age >= 75 History of VTE Family history of VTE Factor V Leiden Prothrombin [id number] Lupus anticoagulant Anticardiolipin antibodies Elevated serum homocysteine Heparin-induced thrombocytopenia Other congenital or acquired thrombophilia Stroke (< 1 month) Elective arthroplasty Hip, pelvis, or leg fracture Acute spinal cord injury (< 1 month) Prophylaxis Regimen: Total Risk Factor Score Risk Level Prophylaxis Regimen 0-1 Low Early ambulation 2 Moderate Order ONE of the following: *Sequential Compression Device (SCD) *Heparin 5000 units SQ BID 3-4 Higher Order ONE of the following medications: *Heparin 5000 units SQ TID *Enoxaparin/Lovenox 40 mg SQ daily (WT < 150 kg, CrCl > 30 mL/min) *Enoxaparin/Lovenox 30 mg SQ daily (WT < 150 kg, CrCl > 10-29 mL/min) *Enoxaparin/Lovenox 30 mg SQ BID (WT < 150 kg, CrCl > 30 mL/min) AND/OR *Sequential Compression Device (SCD) 5 or more Highest Order ONE of the following medications: *Heparin 5000 units SQ TID (Preferred with Epidurals) *Enoxaparin/Lovenox 40 mg SQ daily (WT < 150 kg, CrCl > 30 mL/min) *Enoxaparin/Lovenox 30 mg SQ daily (WT < 150 kg, CrCl > 10-29 mL/min) *Enoxaparin/Lovenox 30 mg SQ BID (WT < 150 kg, CrCl > 30 mL/min) AND *Sequential Compression Device (SCD) Assessment and Plan - Plan Acute Encephalopathy, toxic from infectious process as well as metabolic Sepsis (leukocytosis, tachycardia, source of infection, CAP),Lactic Acidosis, LA of 2.9 on admission- trend lactic acid, and wbc and monitor vital sings. keep normotensive. Pt is meeting sepsis criteria at this time with leukocytosis, tachycardia, and source of infection with community acquired pneumonia. CXR reviewed that revealed haziness overlying the L hemithorax suggestive of effusion, along with parenchymal changes in left lung base suggestive of infiltrate. Blood cultures obtained in ED, follow up with results continue IV antibiotics, azithromycin and ceftriaxone and administer IVF, NS at 100 cc/hr. monitor for fluid overload. monitor kidney function Rhabdomyolysis CPK on admission was found to be 1684 start fluid resuscitation to prevent prerenal azotemia. monitor CK levels and kidney functions Atrial Fibrillation, with RVR begin rate control with Metoprolol drip. maintain HR below 90 bpm Elevated Troponin upon admission pts troponin level was 1.60 pt denies any CP. she is asymptomatic at this time. might be related to rhabdomyolysis. Trend Troponin x3 EKG reviewed by admission that revealed no acute changes, no st elevation Trend EKG Diabetes Mellitus Hold metformin. do Acucheck
--- NOTE | 2018-06-10 16:10 | P.HP ---
History of Present Illness Primary Care Physician: Robbie Dunn MD Chief Complaint: Altered Mental Status History of Present Illness: patient is a 72-year-old female with a pmhx of [place], CVA, A-fib, DM who presents to the emergency department via EMS for altered mental status. EMS states that the patient was found lying on her floor, in her own feces, in the bedroom, with altered mental status. EMS states that the patient's neighbor noted she was altered and lying on the floor, duration unknown. Patient currently only reports bilateral knee pain and L hip pain. Pt is a limited historian and thingks the year is 2020 and does not know the current month. She denies falling and denies having an altered mental status. She states " I was sitting on the floor to change my clothe since I had wet my patns". She denies any headache, chest pain, shortness breath, nausea, vomiting, or abdominal pain. Inpatient Certification: I certify that the inpatient services were ordered in accordance with Medicare regulations governing the order. This includes certification that hospital inpatient services are reasonable and necessary and in the case of services not specified as inpatient-only under 42 CFR 419.22(n), that they are appropriately provided as inpatient services in accordance to with the 2-midnight benchmark under 43 CFR 412.3(e) Estimated Total Length of Stay (Days): 5 Plans for Post Hospital Care: Not yet determined Review of Systems ROS reviewed and negative except as mentioned in HPI All other systems reviewed negative except as stated in HPI PMFSH - History History Provided By: Director Of Photography / EMT - Medical History Medical History: Medical History (Last Reviewed 06/10/18 @ 16:10 by Mary White MD) CVA (cerebral vascular accident) Coronary bypass graft mechanical complication Diabetes [place] (hard of hearing) - Surgical History Surgical History: Surgical History (Last Updated 06/10/18 @ 16:42 by Mary White MD) No history of previous surgery - Family History Family History: Family History (Last Updated 06/10/18 @ 16:42 by Mary White MD) Other Family history of hypertension - Tobacco History Second Hand Smoke Exposure: No Smoking Status: Never smoker - Alcohol History How Often Do You Have a Drink Containing Alcohol: Never - Substance Use History Substance History: No History of Abuse - Travel History Recent Travel in the [facility] Within the Last 8 Weeks: No Recent Travel Out of the Country Within the Last 8 Weeks: No - Immunization History Tetanus Immunization: Unable to Assess Hx Influenza Vaccine This Season: Unable to Assess Medications and Allergies Active Medications: Active Medications Acetaminophen (Tylenol) 650 mg PO Q4H PRN PRN Reason: Temp > 100.4 Al Hydroxide/Mg Hydroxide (Milk Of Magnesia Liq) 30 ml PO Q12H PRN PRN Reason: Mild Constipation Apixaban (Eliquis) 5 mg PO BID [facility] Atorvastatin Calcium (Lipitor) 10 mg PO DAILY [facility] Bisacodyl (Dulcolax Supp) 10 mg RECTAL DAILY PRN PRN Reason: SEVERE CONSITIPATION Enalapril Maleate (Vasotec) 2.5 mg PO DAILY [facility] Sodium Chloride (Ns Inj) 1,000 mls @ 125 mls/hr IV.CONT .Q8H [facility] Last Admin: 06/10/18 10:48 Dose: 125 mls/hr Sodium Chloride (Ns Inj) 1,000 mls @ 100 mls/hr IV.CONT .Q10H [facility] Last Admin: 06/10/18 15:59 Dose: Not Given Ceftriaxone Sodium 1,000 mg/ (Sodium Chloride) 100 mls @ 200 mls/hr IV.SIG Q24H [facility] Last Admin: 06/10/18 14:31 Dose: Not Given Azithromycin 500 mg/ Sodium (Chloride) 250 mls @ 250 mls/hr IV.SIG Q24H [facility] Last Admin: 06/10/18 14:30 Dose: Not Given Lactulose (Lactulose Liq) 30 ml PO DAILY PRN PRN Reason: SEVERE CONSITIPATION Metoclopramide HCl (Reglan Inj) 5 mg IV.PUSH Q6HR PRN; Protocol PRN Reason: NAUSEA OR VOMITING Metoprolol Tartrate (Lopressor) 25 mg PO DAILY [facility] Senna/Docusate Sodium (Megha-Colace) 1 tab PO BID [facility] Sennosides (Senokot) 17.2 mg PO Q12H PRN PRN Reason: Moderate Constipation Sodium Chloride (Ns Flush) 2 ml IV.FLUSH PRN PRN PRN Reason: FLUSH AFTER USING IV ACCESS Temazepam (Restoril) 15 mg PO HS PRN PRN Reason: INSOMNIA Allergies Allergy/AdvReac Type Severity Reaction Status Date / Time penicillin G Allergy Intermediate ITCHING Verified 06/10/18 10:27 Sulfa (Sulfonamide AdvReac Intermediate ITCHING Verified 06/10/18 10:27 Antibiotics) *MDRO Multi-Drug Resistant AdvReac Unknown UNKNOWN Uncoded 06/10/18 10:27 Organism Home Medications Medication Instructions Recorded Confirmed Type apixaban [Eliquis] 5 mg PO BID 06/10/18 06/10/18 History atorvastatin 10 mg PO DAILY 06/10/18 06/10/18 History enalapril maleate 2.5 mg PO DAILY 06/10/18 06/10/18 History gabapentin 300 mg PO DAILY 06/10/18 06/10/18 History insulin NPH isoph U-100 human 25 unit SUB-Q QAM 06/10/18 06/10/18 History [Novolin N NPH U-100 Insulin] insulin NPH isoph U-100 human 30 unit SUB-Q QPM 06/10/18 06/10/18 History [Novolin N NPH U-100 Insulin] metoprolol tartrate 25 mg PO DAILY 06/10/18 06/10/18 History Exam Vital signs: Vital Signs 06/10/18 10:10 06/10/18 10:18 06/10/18 10:51 Temperature 98.5 F 98.5 F Pulse Rate 114 H 113 H Respiratory Rate 18 18 Blood Pressure 118/75 118/75 Pulse Oximetry 96 96 96 06/10/18 12:42 Temperature Pulse Rate 112 H Respiratory Rate 18 Blood Pressure 133/99 H Pulse Oximetry 96 Intake & Output 06/09/18 06/10/18 06/10/18 18:59 06:59 18:59 Intake Total 2099 Balance 2099 Weight 61.235 kg Intake: IV 2099 Azithromycin Inj 500 MG In NS 1000 / 1000 Inj 250 ML @ 250 mls/hr IV.SIG ONCE ONE Rx#:[id number] NS Inj 1,000 ML @ Wide Open IV. 1000 / 1000 SIG BOLUS ONE Rx#:[id number] Rocephin Inj 1,000 MG In NS Inj 100 / 100 100 ML @ 200 mls/hr IV.SIG ONCE ONE Rx#:[id number] Narrative: GENERAL: Elderly patient pleasantly confused, appears in nad. SKIN: Warm and dry. HEAD: Atraumatic. Normocephalic. EYES: Pupils equal and round. No scleral icterus. No injection or drainage. ENT: No nasal bleeding or discharge. Mucous membranes pink and moist. NECK: Trachea midline. No JVD. CARDIOVASCULAR: Regular rate and rhythm. RESPIRATORY: No accessory muscle use. Clear to auscultation. Breath sounds equal bilaterally. GASTROINTESTINAL: Abdomen soft, non-tender, nondistended. Hepatic and splenic margins not palpable. MUSCULOSKELETAL: Extremities without clubbing, cyanosis, or edema. No obvious deformities. NEUROLOGICAL: Awake and alert oriented by first name and location. No obvious cranial nerve deficits. Motor grossly within normal limits. Five out of 5 muscle strength in the arms and legs. Normal speech. Results - Labs CBC & Chem 7: 06/10/18 10:50 06/10/18 10:50 Labs: Laboratory Results - last 24 hr 06/10/18 06/10/18 06/10/18 10:50 10:50 10:50 WBC 16.1 H RBC 4.75 Hgb 13.2 Hct 39.9 MCV 83.9 MCH 27.7 MCHC 33.0 RDW 15.2 Plt Count 271 MPV 10.5 Neut % (Auto) 84.8 H Lymph % (Auto) 8.9 L [place] % (Auto) 5.9 Eos % (Auto) 0.0 Baso % (Auto) 0.4 Neut # (Auto) 13.6 H Lymph # (Auto) 1.4 [place] # (Auto) 0.9 Eos # (Auto) 0.0 Baso # (Auto) 0.1 WBC Differential . Differential Comment Auto diff final PT 11.8 H INR 1.2 APTT 31.7 H Sodium Potassium Chloride Carbon Dioxide Anion Gap BUN Creatinine Estimated GFR Random Glucose Lactic Acid Calcium Total Bilirubin AST ALT Alkaline Phosphatase Ammonia Total Creatine Kinase CK-MB (CK-2) CK-MB (CK-2) % Troponin I Total Protein Albumin TSH Cancelled Urine Color Urine Clarity Urine pH Ur Specific [place] Urine Protein Urine Glucose (UA) Urine Ketones Urine Occult Blood Urine Nitrate Urine Bilirubin Urine Urobilinogen Ur Leukocyte Esterase Urine RBC Urine WBC Ur Squamous Epith Cells Urine Mucus Micro UA Comment Urine Culture Comments Serum Alcohol Cancelled 06/10/18 06/10/18 06/10/18 10:50 10:55 10:55 WBC RBC Hgb Hct MCV MCH MCHC RDW Plt Count MPV Neut % (Auto) Lymph % (Auto) [place] % (Auto) Eos % (Auto) Baso % (Auto) Neut # (Auto) Lymph # (Auto) [place] # (Auto) Eos # (Auto) Baso # (Auto) WBC Differential Differential Comment PT INR APTT Sodium 140 Potassium 3.8 Chloride 106 Carbon Dioxide 20.9 L Anion Gap 13 BUN 21 H Creatinine 1.02 H Estimated GFR 53 L Random Glucose 246 H Lactic Acid 2.9 H Calcium 9.4 Total Bilirubin 1.3 H AST 64 H ALT 32 Alkaline Phosphatase 94 Ammonia Less than 10 L Total Creatine Kinase 1684 H CK-MB (CK-2) 19.1 H CK-MB (CK-2) % 1.1 Troponin I 1.60 H* Total Protein 8.1 Albumin 3.7 TSH 1.730 Urine Color Urine Clarity Urine pH Ur Specific [place] Urine Protein Urine Glucose (UA) Urine Ketones Urine Occult Blood Urine Nitrate Urine Bilirubin Urine Urobilinogen Ur Leukocyte Esterase Urine RBC Urine WBC Ur Squamous Epith Cells Urine Mucus Micro UA Comment Urine Culture Comments Serum Alcohol Less than 3 06/10/18 11:05 WBC RBC Hgb Hct MCV MCH MCHC RDW Plt Count MPV Neut % (Auto) Lymph % (Auto) [place] % (Auto) Eos % (Auto) Baso % (Auto) Neut # (Auto) Lymph # (Auto) [place] # (Auto) Eos # (Auto) Baso # (Auto) WBC Differential Differential Comment PT INR APTT Sodium Potassium Chloride Carbon Dioxide Anion Gap BUN Creatinine Estimated GFR Random Glucose Lactic Acid Calcium Total Bilirubin AST ALT Alkaline Phosphatase Ammonia Total Creatine Kinase CK-MB (CK-2) CK-MB (CK-2) % Troponin I Total Protein Albumin TSH Urine Color Yellow Urine Clarity Hazy H Urine pH 5.0 Ur Specific [place] 1.024 Urine Protein 100 H Urine Glucose (UA) 500 or greater Urine Ketones 20 Urine Occult Blood Moderate H Urine Nitrate Negative Urine Bilirubin Negative Urine Urobilinogen 2.0 H Ur Leukocyte Esterase Negative Urine RBC 3 Urine WBC 3 Ur Squamous Epith Cells <1 Urine Mucus Few H Micro UA Comment Cath-culture not ind Urine Culture Comments Cath-cult not ind Serum Alcohol - Imaging Impressions Chest X-Ray 06/10/18 10:14 CONCLUSION: 1. There is some parenchymal changes in the left lung base suggestive of infiltrate. There is some haziness overlying the left hemithorax suggestive of an effusion. 2. There is some pulmonary venous congestion. Head CT 06/10/18 10:14 CONCLUSION: 1. No focal or acute intracranial hemorrhage. 2. 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 3. Bilateral cortical atrophy. Knee X-Ray 06/10/18 10:14 CONCLUSION: Unremarkable plain films for patient's age. No acute fracture or joint dislocation. Knee X-Ray 06/10/18 10:14 CONCLUSION: 1. Moderate joint effusion. 2. Osteopenia of the bony structures. No definite acute fracture or joint dislocation. Pelvis X-Ray 06/10/18 10:14 CONCLUSION: No acute fracture or joint dislocation. Caprini VTE Risk Assessment Caprini VTE Risk Assessment: Moderate/High Risk (score >= 2) Caprini Risk Assessment Model: Point Value = 1 Point Value = 2 Point Value = 3 Point Value = 5 Age 41-60 Minor surgery BMI > 25 kg/m2 Swollen legs Varicose veins or History of unexplained or recurrent spontaneous Oral contraceptives or hormone replacement Sepsis (< 1 month) Serious lung disease, including pneumonia (< 1 month) Abnormal pulmonary function Acute myocardial infarction Congestive heart failure (< 1 month) History of inflammatory bowel disease Medical patient at bed rest Age 61-74 Arthroscopic surgery Major open surgery (> 45 min) Laparoscopic surgery (> 45 min) Malignancy Confined to bed (> 72 hours) Immobilizing plaster cast Central venous access Age >= 75 History of VTE Family history of VTE Factor V Leiden Prothrombin [id number] Lupus anticoagulant Anticardiolipin antibodies Elevated serum homocysteine Heparin-induced thrombocytopenia Other congenital or acquired thrombophilia Stroke (< 1 month) Elective arthroplasty Hip, pelvis, or leg fracture Acute spinal cord injury (< 1 month) Prophylaxis Regimen: Total Risk Factor Score Risk Level Prophylaxis Regimen 0-1 Low Early ambulation 2 Moderate Order ONE of the following: *Sequential Compression Device (SCD) *Heparin 5000 units SQ BID 3-4 Higher Order ONE of the following medications: *Heparin 5000 units SQ TID *Enoxaparin/Lovenox 40 mg SQ daily (WT < 150 kg, CrCl > 30 mL/min) *Enoxaparin/Lovenox 30 mg SQ daily (WT < 150 kg, CrCl > 10-29 mL/min) *Enoxaparin/Lovenox 30 mg SQ BID (WT < 150 kg, CrCl > 30 mL/min) AND/OR *Sequential Compression Device (SCD) 5 or more Highest Order ONE of the following medications: *Heparin 5000 units SQ TID (Preferred with Epidurals) *Enoxaparin/Lovenox 40 mg SQ daily (WT < 150 kg, CrCl > 30 mL/min) *Enoxaparin/Lovenox 30 mg SQ daily (WT < 150 kg, CrCl > 10-29 mL/min) *Enoxaparin/Lovenox 30 mg SQ BID (WT < 150 kg, CrCl > 30 mL/min) AND *Sequential Compression Device (SCD) Assessment and Plan - Plan Acute Encephalopathy, toxic from infectious process as well as metabolic Sepsis (leukocytosis, tachycardia, source of infection, CAP),Lactic Acidosis, LA of 2.9 on admission- trend lactic acid, and wbc and monitor vital sings. keep normotensive. Pt is meeting sepsis criteria at this time with leukocytosis, tachycardia, and source of infection with community acquired pneumonia. CXR reviewed that revealed haziness overlying the L hemithorax suggestive of effusion, along with parenchymal changes in left lung base suggestive of infiltrate. Blood cultures obtained in ED, follow up with results continue IV antibiotics, azithromycin and ceftriaxone and administer IVF, NS at 100 cc/hr. monitor for fluid overload. monitor kidney function Rhabdomyolysis CPK on admission was found to be 1684 start fluid resuscitation to prevent prerenal azotemia. monitor CK levels and kidney functions Atrial Fibrillation, with RVR begin rate control with Metoprolol drip. maintain HR below 90 bpm Restart eliquis Elevated Troponin upon admission pts troponin level was 1.60 pt denies any CP. she is asymptomatic at this time. might be related to rhabdomyolysis. Trend Troponin x3 EKG reviewed by admission that revealed no acute changes, no st elevation Trend EKG Diabetes Mellitus Hold metformin. do Acucheck. IsS Monitor BS and adjustments as need HTN montiro . Restart home meds Other chronic medical problems appears at baseline, restart home meds as appropriate DVt ppx on eliquis
[2018-06-10] MEDS ORDERED: Dextrose 50% in Water 50 ML Vial IV.PUSH PRN (16:38)
[2018-06-10] MEDS: Insulin NovoLIN Regular Correctional Sugar Inj SQ SCH (18:49)
[2018-06-10] MEDS: Senna/Docusate Sodium 8.6/50 MG Tablet PO SCH ×2 (21:32→21:37)
[2018-06-11] MEDS: Sod Chloride 0.9% Inj 1,000 ML IV.CONT SCH ×3 (00:22→08:23)
[2018-06-11] MEDS: Insulin NovoLIN Regular Correctional Sugar Inj SQ SCH ×2 (00:50→07:55)
[2018-06-11 07:27] LABS: Baso # (Auto) 0.2 th/mm3 (0.0-0.2); Baso % (Auto) 1.2 % (0.0-2.0); Eos % (Auto) 0.3 % (0.0-4.0); Hematocrit 35.3 % (35.0-46.0); Hemoglobin 11.6 gm/dL (11.6-15.3); Lymph % (Auto) 13.5 % (9.0-44.0); Mean Corpuscular HGB Conc 32.8 % (32.0-36.0); Mean Corpuscular Hemoglobin 27.7 pg (27.0-34.0); Mean Corpuscular Volume 84.6 fL (80.0-100.0); Mean Platelet Volume 11.2 fL (7.0-11.0); Mono # (Auto) 1.2 th/mm3 (0.0-0.9); Mono % (Auto) 8.3 % (0.0-8.0); Neut # (Auto) 11.1 th/mm3 (1.8-7.7); Neut % (Auto) 76.7 % (16.0-70.0); Platelet Count 235 th/mm3 (150-450); Red Blood Count 4.18 mil/mm3 (4.00-5.30); Red Cell Distribution Width 15.8 % (11.6-17.2); White Blood Count 14.5 th/mm3 (4.0-11.0)
[2018-06-11] MEDS: Senna/Docusate Sodium 8.6/50 MG Tablet PO SCH ×2 (08:22→20:46)
--- NOTE | 2018-06-11 08:55 | MB ---
cc: John Geiger MD DATE: 06/11/2018 INDICATION: Elevated troponin. HISTORY OF PRESENT ILLNESS: This is a 72-year-old female with a past medical history of myocardial infarction, stroke, atrial fibrillation and diabetes, who presented with altered mental status. Her is apparently out of town. She was found down on the floor in feces with altered mental status. She was complaining of some hip and knee pain, but no chest pain. She came in and underwent evaluation which suggested acute encephalopathy and possible sepsis with elevated lactate. Chest x-ray did show some haziness with a possible infiltrate. She was initially on intravenous antibiotics. Her CPK was also elevated and troponin was mildly elevated. She was in atrial fibrillation with rapid ventricular rates. She is on Eliquis at home, which was restarted and she was initiated on metoprolol. We were consulted for further recommendations. PAST MEDICAL HISTORY: Stroke, coronary artery disease with coronary artery bypass grafting, diabetes. PAST SURGICAL HISTORY: Not recorded. SOCIAL HISTORY: Never a smoker. FAMILY HISTORY: No family history recorded. Unobtainable. HOME MEDICATIONS: See medication reconciliation. REVIEW OF SYSTEMS: Unobtainable. PHYSICAL EXAMINATION: VITAL SIGNS: Heart rate is currently 98, blood pressure is 149/80 mmHg. GENERAL: She is in no distress noted. HEENT: Shows pupils reactive. NECK: No elevation of the jugular veins. LUNGS: Clear to auscultation bilaterally. CARDIOVASCULAR: Irregular irregular without murmurs, rubs or gallops. ABDOMEN: Nontender, nondistended with good bowel sounds. No hepatosplenomegaly. EXTREMITIES: No clubbing, cyanosis or edema. Good peripheral pulses. NEUROLOGIC: Cranial nerves intact. Motor and sensory grossly intact. LABORATORY DATA: WBC 14.5, hemoglobin 11.6, platelet count is 235. INR is 1.2. Sodium 141, potassium 3.8, BUN 21, creatinine is 1.02. CPKs 1684, troponin is 1.6 up to 2.87. Electrocardiogram shows atrial fibrillation with occasional premature ventricular complexes, nonspecific T-wave inversions in the anterolateral precordial leads. ASSESSMENT: 1. Elevated troponin. 2. History of apparent coronary artery disease, myocardial infarction, stroke, atrial fibrillation, diabetes. I suspect her elevated troponin is likely demand mediated either from sepsis or with rhabdomyolysis. You can also see mild elevation in troponins. We will follow the trend. Electrocardiogram shows some nonspecific T-wave inversions, but no obvious ST segment deviation. Atrial fibrillation is better controlled today on her metoprolol. I am not sure she is a good anticoagulation candidate, but I am also not sure what her baseline is. I will followup with a 2-D echocardiogram. At this point, we will gather more information and decide if she requires any further ischemic workup. As of right now, she is obviously not a good candidate for cardiac catheterization. May consider, prior to discharge, a Lexiscan just to rule out any significant ischemic burden. Gentle hydration. We will titrate metoprolol for better rate control. John Geiger MD ROBERTO CARLOS/DL , 08:12 AM , 08:54 AM
[2018-06-11] MEDS ORDERED: Metoprolol Tartrate 25 MG Tablet PO SCH (09:00)
[2018-06-11] MEDS ORDERED: Metoprolol Tartrate 50 MG Tablet PO SCH (09:00)
--- NOTE | 2018-06-11 09:29 | P.PNIM ---
Subjective Interval history: Confused. Upset that she does not have a walker in the room. She is upset that she was told she can drink water although she has a cup of water in her hand. She denies any shortness of breath. She denies any chest pain. Physical Exam Vital signs: Vital Signs 06/10/18 10:10 06/10/18 10:18 06/10/18 10:51 Temperature 98.5 F 98.5 F Pulse Rate 114 H 113 H Respiratory Rate 18 18 Blood Pressure 118/75 118/75 Pulse Oximetry 96 96 96 06/10/18 12:42 06/10/18 15:00 06/10/18 17:00 Temperature Pulse Rate 112 H 100 H 98 H Respiratory Rate 18 18 18 Blood Pressure 133/99 H 118/66 109/57 L Pulse Oximetry 96 96 96 06/10/18 19:18 06/10/18 19:29 06/10/18 23:00 Temperature Pulse Rate 96 H 98 H Respiratory Rate 18 16 Blood Pressure 135/89 149/80 H Pulse Oximetry 95 95 96 06/11/18 00:32 06/11/18 01:46 06/11/18 04:00 Temperature Pulse Rate 102 H Respiratory Rate 16 Blood Pressure 143/97 H Pulse Oximetry 94 L 96 95 06/11/18 07:56 Temperature 98.5 F Pulse Rate 105 H Respiratory Rate 19 Blood Pressure 196/103 H Pulse Oximetry 92 L Intake & Output 06/10/18 06/11/18 06/11/18 18:59 06:59 18:59 Intake Total 3100 / 3100 1999 Balance 3100 / 3100 1999 Weight 61.235 kg Intake: IV 3100 / 3100 1999 NS Inj 1,000 ML @ 100 mls/hr IV 999 / 1000 1999 .CONT .Q10H SAUNDRA Rx#:[id number] Azithromycin Inj 500 MG In NS 1000 / 1000 Inj 250 ML @ 250 mls/hr IV.SIG ONCE ONE Rx#:[id number] NS Inj 1,000 ML @ Wide Open IV. 1000 / 1000 SIG BOLUS ONE Rx#:[id number] Rocephin Inj 1,000 MG In NS Inj 100 / 100 100 ML @ 200 mls/hr IV.SIG ONCE ONE Rx#:[id number] Narrative: GENERAL: This is a well-nourished, well-developed patient, in no apparent distress. CARDIOVASCULAR: Irregular rhythm regular rate RESPIRATORY: Left basilar crackles GASTROINTESTINAL: Abdomen soft, non-tender, nondistended. Normal active bowel sounds MUSCULOSKELETAL: Extremities without clubbing, cyanosis, or edema. NEURO: Alert and oriented to person only and confused with mild agitation. Not oriented to situation or time. Moves all ext x4 - Urinary Catheter Management Straight Cath placed during this visit: yes, but has since been removed by the nurse Reason for continuing: Not indwelling catheter Insertion date: 06/10/18 Insertion time: 11: Removal date: 06/10/18 Removal time: 11: Results - Labs CBC & Chem 7: 06/11/18 05:48 06/10/18 10:50 Laboratory Results - last 24 hr 06/10/18 06/10/18 06/10/18 10:50 10:50 10:50 WBC 16.1 H RBC 4.75 Hgb 13.2 Hct 39.9 MCV 83.9 MCH 27.7 MCHC 33.0 RDW 15.2 Plt Count 271 MPV 10.5 Prelim Diff (Auto) Neut % (Auto) 84.8 H Lymph % (Auto) 8.9 L [place] % (Auto) 5.9 Eos % (Auto) 0.0 Baso % (Auto) 0.4 Neut # (Auto) 13.6 H Lymph # (Auto) 1.4 [place] # (Auto) 0.9 Eos # (Auto) 0.0 Baso # (Auto) 0.1 WBC Differential . Diff Scan Differential Comment Auto diff final Hematology Comments PT 11.8 H INR 1.2 APTT 31.7 H Sodium Potassium Chloride Carbon Dioxide Anion Gap BUN Creatinine Estimated GFR POC Glucose Random Glucose Lactic Acid Calcium Total Bilirubin AST ALT Alkaline Phosphatase Ammonia Total Creatine Kinase CK-MB (CK-2) CK-MB (CK-2) % Troponin I Total Protein Albumin TSH Cancelled Urine Color Urine Clarity Urine pH Ur Specific [place] Urine Protein Urine Glucose (UA) Urine Ketones Urine Occult Blood Urine Nitrate Urine Bilirubin Urine Urobilinogen Ur Leukocyte Esterase Urine RBC Urine WBC Ur Squamous Epith Cells Urine Mucus Micro UA Comment Urine Culture Comments Serum Alcohol Cancelled 06/10/18 06/10/18 06/10/18 10:50 10:55 10:55 WBC RBC Hgb Hct MCV MCH MCHC RDW Plt Count MPV Prelim Diff (Auto) Neut % (Auto) Lymph % (Auto) [place] % (Auto) Eos % (Auto) Baso % (Auto) Neut # (Auto) Lymph # (Auto) [place] # (Auto) Eos # (Auto) Baso # (Auto) WBC Differential Diff Scan Differential Comment Hematology Comments PT INR APTT Sodium 140 Potassium 3.8 Chloride 106 Carbon Dioxide 20.9 L Anion Gap 13 BUN 21 H Creatinine 1.02 H Estimated GFR 53 L POC Glucose Random Glucose 246 H Lactic Acid 2.9 H Calcium 9.4 Total Bilirubin 1.3 H AST 64 H ALT 32 Alkaline Phosphatase 94 Ammonia Less than 10 L Total Creatine Kinase 1684 H CK-MB (CK-2) 19.1 H CK-MB (CK-2) % 1.1 Troponin I 1.60 H* Total Protein 8.1 Albumin 3.7 TSH 1.730 Urine Color Urine Clarity Urine pH Ur Specific [place] Urine Protein Urine Glucose (UA) Urine Ketones Urine Occult Blood Urine Nitrate Urine Bilirubin Urine Urobilinogen Ur Leukocyte Esterase Urine RBC Urine WBC Ur Squamous Epith Cells Urine Mucus Micro UA Comment Urine Culture Comments Serum Alcohol Less than 3 06/10/18 06/10/18 06/10/18 11:05 16:06 18:31 WBC RBC Hgb Hct MCV MCH MCHC RDW Plt Count MPV Prelim Diff (Auto) Neut % (Auto) Lymph % (Auto) [place] % (Auto) Eos % (Auto) Baso % (Auto) Neut # (Auto) Lymph # (Auto) [place] # (Auto) Eos # (Auto) Baso # (Auto) WBC Differential Diff Scan Differential Comment Hematology Comments PT INR APTT Sodium Potassium Chloride Carbon Dioxide Anion Gap BUN Creatinine Estimated GFR POC Glucose Random Glucose Lactic Acid 3.2 H Calcium Total Bilirubin AST ALT Alkaline Phosphatase Ammonia Total Creatine Kinase CK-MB (CK-2) CK-MB (CK-2) % Troponin I 2.87 H* D Total Protein Albumin TSH Urine Color Yellow Urine Clarity Hazy H Urine pH 5.0 Ur Specific [place] 1.024 Urine Protein 100 H Urine Glucose (UA) 500 or greater Urine Ketones 20 Urine Occult Blood Moderate H Urine Nitrate Negative Urine Bilirubin Negative Urine Urobilinogen 2.0 H Ur Leukocyte Esterase Negative Urine RBC 3 Urine WBC 3 Ur Squamous Epith Cells <1 Urine Mucus Few H Micro UA Comment Cath-culture not ind Urine Culture Comments Cath-cult not ind Serum Alcohol 07/11/1606/10/18 06/10/18 18:36 23:18 23:18 WBC RBC Hgb Hct MCV MCH MCHC RDW Plt Count MPV Prelim Diff (Auto) Neut % (Auto) Lymph % (Auto) [place] % (Auto) Eos % (Auto) Baso % (Auto) Neut # (Auto) Lymph # (Auto) [place] # (Auto) Eos # (Auto) Baso # (Auto) WBC Differential Diff Scan Differential Comment Hematology Comments PT INR APTT Sodium Potassium Chloride Carbon Dioxide Anion Gap BUN Creatinine Estimated GFR POC Glucose Random Glucose Lactic Acid 2.1 H 1.8 Calcium Total Bilirubin AST ALT Alkaline Phosphatase Ammonia Total Creatine Kinase CK-MB (CK-2) CK-MB (CK-2) % Troponin I 3.81 H* D Total Protein Albumin TSH Urine Color Urine Clarity Urine pH Ur Specific [place] Urine Protein Urine Glucose (UA) Urine Ketones Urine Occult Blood Urine Nitrate Urine Bilirubin Urine Urobilinogen Ur Leukocyte Esterase Urine RBC Urine WBC Ur Squamous Epith Cells Urine Mucus Micro UA Comment Urine Culture Comments Serum Alcohol 06/11/18 06/11/18 00:29 05:48 WBC 14.5 H RBC 4.18 Hgb 11.6 Hct 35.3 MCV 84.6 MCH 27.7 MCHC 32.8 RDW 15.8 Plt Count 235 MPV 11.2 H Prelim Diff (Auto) Slide review pending Neut % (Auto) 76.7 H Lymph % (Auto) 13.5 [place] % (Auto) 8.3 H Eos % (Auto) 0.3 Baso % (Auto) 1.2 Neut # (Auto) 11.1 H Lymph # (Auto) 2.0 [place] # (Auto) 1.2 H Eos # (Auto) 0.0 Baso # (Auto) 0.2 WBC Differential . Diff Scan Auto diff confirmed Differential Comment . Hematology Comments PT INR APTT Sodium Potassium Chloride Carbon Dioxide Anion Gap BUN Creatinine Estimated GFR POC Glucose 239 H Random Glucose Lactic Acid Calcium Total Bilirubin AST ALT Alkaline Phosphatase Ammonia Total Creatine Kinase CK-MB (CK-2) CK-MB (CK-2) % Troponin I Total Protein Albumin TSH Urine Color Urine Clarity Urine pH Ur Specific [place] Urine Protein Urine Glucose (UA) Urine Ketones Urine Occult Blood Urine Nitrate Urine Bilirubin Urine Urobilinogen Ur Leukocyte Esterase Urine RBC Urine WBC Ur Squamous Epith Cells Urine Mucus Micro UA Comment Urine Culture Comments Serum Alcohol - Imaging Impressions Chest X-Ray 06/10/18 10:14 CONCLUSION: 1. There is some parenchymal changes in the left lung base suggestive of infiltrate. There is some haziness overlying the left hemithorax suggestive of an effusion. 2. There is some pulmonary venous congestion. Head CT 06/10/18 10:14 CONCLUSION: 1. No focal or acute intracranial hemorrhage. 2. 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 3. Bilateral cortical atrophy. Knee X-Ray 06/10/18 10:14 CONCLUSION: Unremarkable plain films for patient's age. No acute fracture or joint dislocation. Knee X-Ray 06/10/18 10:14 CONCLUSION: 1. Moderate joint effusion. 2. Osteopenia of the bony structures. No definite acute fracture or joint dislocation. Pelvis X-Ray 06/10/18 10:14 CONCLUSION: No acute fracture or joint dislocation. Assessment and Plan - Plan 1. Acute Encephalopathy, toxic from infectious process as well as metabolic, continue neurological checks. 2. Sepsis (leukocytosis, tachycardia, source of infection, CAP),Lactic Acidosis , LA of 2.9 on admission-trending down lactic acid, and wbc and monitor vital sings. keep normotensive. Pt is meeting sepsis criteria at this time with leukocytosis, tachycardia, and source of infection with community acquired pneumonia. CXR reviewed that revealed haziness overlying the L hemithorax suggestive of effusion, along with parenchymal changes in left lung base suggestive of infiltrate. Blood cultures obtained in ED, follow up with final results continue IV antibiotics, azithromycin and ceftriaxone and administer IVF, NS at 100 cc/hr. monitor for fluid overload. monitor kidney function Continue with supportive care 3. Rhabdomyolysis CPK on admission was found to be 1684 start fluid resuscitation to prevent prerenal azotemia. monitor CK levels and kidney functions 4.. Atrial Fibrillation, with presenting RVR Now better rate control metoprolol. maintain HR below 90 bpm Restart eliquis 5. Elevated Troponin upon admission pts troponin level was 1.60 pt denies any CP. she is asymptomatic at this time. might be related to rhabdomyolysis. Trend Troponin x3 EKG reviewed by admission that revealed no acute changes, no st elevation 6. Diabetes Mellitus, type II uncontrolled Hold metformin. Continue Accu-Cheks with sliding scale insulin and monitor blood sugar trends for further intervention. 7. HTN, chronic essential - monitor. Restart home medications enalapril A. Suspect chronic kidney disease stage IIIwill monitor and avoid nephrotoxins. IV fluid hydration initiated. 8. DVT prophylaxisEliquis started
[2018-06-11 12:21] LABS: Alanine Aminotransferase 67 U/L (10-53); Alkaline Phosphatase 126 U/L (45-117); Anion Gap 14 meq/L (5-15); Aspartate Aminotransferase 86 U/L (15-37); Blood Urea Nitrogen 26 mg/dL (7-18); Calcium 8.6 mg/dL (8.5-10.1); Carbon Dioxide 15.8 meq/L (21.0-32.0); Chloride 113 meq/L (98-107); Creatine Kinase 663 U/L (26-192); Glomerular Filtration Rate 53 mL/min (>89); Glucose,Random 300 mg/dL (74-106); Potassium 4.1 meq/L (3.5-5.1); Sodium 143 meq/L (136-145); Total Protein 7.1 g/dL (6.4-8.2)
[2018-06-11 12:52] LABS: CKMB Percent 1.2 % (0.0-4.0); Creatine Kinase MB 7.8 ng/mL (0.5-3.6)
[2018-06-11] MEDS: Azithromycin Inj 500 MG in Sodium Chlor 0.9% Inj 250 ML IV.SIG SCH (16:18)
--- NOTE | 2018-06-11 16:38 | ECHRPT ---
Indication: ATRIAL FIB/FLUTTER CONCLUSIONS Normal left ventricular size. Wall thickness is normal. The left ventricular systolic function is severely reduced with an estimated ejection fraction in th e range of 25-30%. There is global left ventricular dysfunction. The right ventricle is mildly dilated. The interatrial septum not well visualized. The aortic root and proximal ascending aorta are not well visualized. Mitral valve mean gradient is 5 mmHg. Severe mitral annular calcification. [id number] mitral valve regurgitation. Aortic valve sclerosis is present. Mild aortic valve regurgitation. There is trace tricuspid valve regurgitation. The estimated pulmonary arterial pressure is 62.1 mmHg. There is estimated htneboqk-vi-dvbfhn pulmonary hypertension present (range 60-70 mmHg). Trivial pulmonary valve regurgitation. The inferior vena cava was not well visualized. BP: / HR: Rhythm: Sinus MEASUREMENTS (Male / Female) Normal Values Technical Quality:Very technically difficult study 2D ECHO LV Diastolic Diameter PLAX 4.1 cm 4.2 - 5.9 / 3.9 - 5.3 cm LV Systolic Diameter PLAX 3.6 cm IVS Diastolic Thickness 1.0 cm 0.6 - 1.0 / 0.6 - 0.9 cm LVPW Diastolic Thickness 1.0 cm 0.6 - 1.0 / 0.6 - 0.9 cm LV Relative Wall Thickness 0.5 RV Internal Dim ED PLAX 3.1 cm LVOT Diameter 1.7 cm Aortic Root Diameter 2.5 cm LA Systolic Diameter LX 2.6 cm 3.0 - 4.0 / 2.7 - 3.8 cm M-MODE AV Cusp Separation MM 1.6 cm DOPPLER AV Peak Velocity 120.0 cm/s AV Peak Gradient 5.8 mmHg AV Mean Gradient 3.0 mmHg AV Velocity Time Integral 20.5 cm LVOT Peak Velocity 69.4 cm/s LVOT Peak Gradient 1.9 mmHg LVOT Velocity Time Integral 11.7 cm AV Area Cont Eq vti 1.3 cm AV Area Cont Eq pk 1.3 cm MV Peak Velocity 175.0 cm/s MV Peak Gradient 12.3 mmHg MV Mean Velocity 104.6 cm/s MV Mean Gradient 5.0 mmHg Mitral E Point Velocity 185.0 cm/s LV E' Lateral Velocity 3.8 cm/s Mitral E to LV E' Lateral Ratio 48.7 LV E' Septal Velocity 2.8 cm/s Mitral E to LV E' Septal Ratio 65.4 TR Peak Velocity 361.0 cm/s TR Peak Gradient 52.1 mmHg Right Atrial Pressure 10.0 mmHg Pulmonary Artery Systolic Pressu 62.1 mmHg Right Ventricular Systolic Press 62.1 mmHg PV Peak Velocity 53.4 cm/s PV Peak Gradient 1.1 mmHg FINDINGS LEFT VENTRICLE Normal left ventricular size. Wall thickness is normal. The left ventricular systolic function is severely reduced with an estimated ejection fraction in th e range of 25-30%. There is global left ventricular dysfunction. RIGHT VENTRICLE The right ventricle is mildly dilated. LEFT ATRIUM The left atrial size is normal. RIGHT ATRIUM The right atrial size is normal. ATRIAL SEPTUM The interatrial septum not well visualized. AORTA The aortic root and proximal ascending aorta are not well visualized. MITRAL VALVE Mitral valve mean gradient is 5 mmHg. Severe mitral annular calcification. [id number] mitral valve regurgitation. AORTIC VALVE Aortic valve sclerosis is present. Mild aortic valve regurgitation. TRICUSPID VALVE There is trace tricuspid valve regurgitation. The estimated pulmonary arterial pressure is 62.1 mmHg. There is estimated hhewfssp-dd-wylrqz pulmonary hypertension present (range 60-70 mmHg). PULMONARY VALVE Trivial pulmonary valve regurgitation. VESSELS The inferior vena cava was not well visualized. PERICARDIUM No pericardial effusion. Jerson Rosario MD (Electronically Signed) Final Date:11 June 2018 16:37
--- NOTE | 2018-06-11 17:36 | ECG ---
Date Performed: 06/10/2018 Time Performed: 20:05:32 PTAGE: 72 years EKG: ATRIAL FIBRILLATION WITH ABERRANT CONDUCTION OR VENTRICULAR PREMATURE COMPLEXES MODERATE T- WAVE ABNORMALITY, CONSIDER ANTERIOR ISCHEMIA ABNORMAL ECG INTERPRETATION BASED ON A DEFAULT AGE OF 40 YEARS PREVIOUS TRACING : 06/10/2018 10.18 COMPARED WITH PREVIOUS TRACING ATRIAL FIBRILLATION IS NEW DOCTOR: Bernardino Larios Interpretating Date/Time 06/11/2018 17:36:19
--- NOTE | 2018-06-11 18:12 | ECG ---
Date Performed: 06/10/2018 Time Performed: 10:18:11 PTAGE: 72 years EKG: ATRIAL FIBRILLATION WITH RAPID VENTRICULAR RESPONSE MODERATE T-WAVE ABNORMALITY, CONSIDER A NTERIOR ISCHEMIA ABNORMAL ECG PREVIOUS TRACING : 03/22/2015 20.35 Since the previous tracing, no significant change noted DOCTOR: Bernardino Larios Interpretating Date/Time 06/11/2018 18:11:11
[2018-06-11] MEDS: Insulin NovoLOG Aspart Correctional Sugar Inj SQ SCH (20:47)
[2018-06-12 07:16] LABS: Baso # (Auto) 0.1 th/mm3 (0.0-0.2); Baso % (Auto) 0.9 % (0.0-2.0); Eos % (Auto) 0.3 % (0.0-4.0); Hematocrit 36.8 % (35.0-46.0); Hemoglobin 11.9 gm/dL (11.6-15.3); Lymph # (Auto) 2.3 th/mm3 (1.0-4.8); Lymph % (Auto) 15.6 % (9.0-44.0); Mean Corpuscular HGB Conc 32.2 % (32.0-36.0); Mean Corpuscular Hemoglobin 27.7 pg (27.0-34.0); Mean Corpuscular Volume 85.8 fL (80.0-100.0); Mean Platelet Volume 10.8 fL (7.0-11.0); Mono # (Auto) 1.3 th/mm3 (0.0-0.9); Mono % (Auto) 8.7 % (0.0-8.0); Neut # (Auto) 10.8 th/mm3 (1.8-7.7); Neut % (Auto) 74.5 % (16.0-70.0); Platelet Count 289 th/mm3 (150-450); Red Blood Count 4.29 mil/mm3 (4.00-5.30); Red Cell Distribution Width 15.9 % (11.6-17.2); White Blood Count 14.5 th/mm3 (4.0-11.0)
[2018-06-12 07:39] LABS: Calcium 8.5 mg/dL (8.5-10.1); Carbon Dioxide 14.7 meq/L (21.0-32.0); Potassium 3.7 meq/L (3.5-5.1)
[2018-06-12 07:58] LABS: CKMB Percent 1.5 % (0.0-4.0); Creatine Kinase MB 4.6 ng/mL (0.5-3.6)
[2018-06-12] MEDS: Insulin NovoLOG Aspart Correctional Sugar Inj SQ SCH ×5 (10:02→21:42)
[2018-06-12] MEDS: Gabapentin 300 MG Capsule PO SCH (10:03)
[2018-06-12] MEDS: Senna/Docusate Sodium 8.6/50 MG Tablet PO SCH ×2 (10:05→21:41)
--- NOTE | 2018-06-12 10:26 | P.PNCA ---
Subjective Interval history: Patient seen and examined. Denies chest pain. She has dyspnea. She is agitated and says "my brain doesn't work". tele not hooked up. echo shows severe cardiomyopathy EF 25% with global LV systolic dysfunction and mod MR, PAP 60s Physical Exam Vital signs: Vital Signs 06/11/18 13:23 06/11/18 16:00 06/11/18 20:00 Temperature 98 F 97.3 F L Pulse Rate 91 H 88 Respiratory Rate 19 18 32 H Blood Pressure 175/71 H 132/74 Pulse Oximetry 95 94 L 06/12/18 00:00 06/12/18 00:35 06/12/18 04:00 Temperature 98.2 F 97.8 F Pulse Rate 98 H 90 Respiratory Rate 32 H 22 32 H Blood Pressure 136/80 191/93 H Pulse Oximetry 90 L 92 L 06/12/18 05:00 06/12/18 08:00 Temperature 97.2 F L Pulse Rate 88 Respiratory Rate 26 H 20 Blood Pressure 170/80 H 150/89 H Pulse Oximetry 95 Intake & Output 06/11/18 06/12/18 06/12/18 18:59 06:59 18:59 Intake Total 2340 / 2340 480 / 480 Balance 2340 / 2340 480 / 480 Weight 74.8 kg 74.8 kg Intake: IV 2100 / 2100 NS Inj 1,000 ML @ 100 mls/hr IV 2000 / 2000 .CONT .Q10H SAUNDRA Rx#:[id number] Rocephin Inj 1,000 MG In NS Inj 100 / 100 100 ML @ 200 mls/hr IV.SIG Q24H SAUNDRA Rx#:[id number] Oral 240 / 240 480 / 480 Other: # Voids 2 # Incontinent Voids 2 Weight On Admission 74.8 kg Narrative: GENERAL: This is a well-nourished, well-developed patient, she is agitated CARDIOVASCULAR: Irregular rhythm regular rate, 2/6 ROBERTO CARLOS RESPIRATORY: Left basilar crackles GASTROINTESTINAL: Abdomen soft, non-tender, nondistended. Normal active bowel sounds MUSCULOSKELETAL: Extremities without clubbing, cyanosis, she has 1+ bl LE edema. NEURO: Alert and oriented to person and place with mild agitation. Moves all ext x4 - Urinary Catheter Management Straight Cath placed during this visit: yes, but has since been removed by the nurse Reason for continuing: Not indwelling catheter Insertion date: 06/10/18 Insertion time: 11:08 Removal date: 06/10/18 Removal time: 11:09 Assessment and Plan - Plan ASSESSMENT: AMS with syncope NSTEMI Cardiomyopathy, EF 25%, presumed ischemic Acute systolic CHF CAD s/p 3vCABG 12/2014 Atrial Fibrillation DM RECOMMENDATION: -medical management for NSTEMI for now -Start ASA 81mg daily -change metoprolol tartrate to carvedilol 12.5mg bid -change enalapril 2.5mg daily to lisinopril 10mg daily -start spironolactone 12.5mg daily -lasix 20mg iv x 1 today -CXR now -continue Eliquis for now -cotinue telemetry monitoring, discussed with RN it was not previously recording
--- NOTE | 2018-06-12 10:44 | XR ---
EXAM DATE: 06/12/2018 10:34 AM EDT AGE/SEX: 72 years / Female INDICATIONS: Shortness of breath. CLINICAL DATA: This is the patient's subsequent encounter. Patient reports that signs and symptoms h ave been present for 3 days and indicates a pain score of 10/10. MEDICAL/SURGICAL HISTORY: None. CABG. COMPARISON: [facility] [place], CHEST 1V SINGLE AP, 06/10/2018. [facility] [place], CHEST SINGLE AP, 03/23/2015. . FINDINGS: Single AP semiupright portable view of the chest demonstrates improved aeration within the left hemit horax with a persistent moderate to large sided left-sided pleural effusion. There is worsening right -sided airspace consolidation and pleural fluid. There appears to be an old right-sided sixth rib fra cture present. Heart size appears grossly normal. Stable median sternotomy changes. CONCLUSION: Improved aeration of the left hemithorax with persistent moderate to large sided left-sided pleural e ffusion. There is a worsening lung exam within the right hemithorax with new right-sided airspace con solidation versus layering pleural fluid which appears moderate in amount. The right sixth rib fractu re appears to be old. Electronically signed by: Malathi Mayen MD 06/12/2018 10:43 AM EDT
[2018-06-12] MEDS ORDERED: Spironolactone 25 MG Tablet PO SCH (11:00)
[2018-06-12] MEDS: Carvedilol 12.5 MG Tablet PO SCH ×2 (11:17→21:42)
--- NOTE | 2018-06-12 11:42 | P.PN ---
Subjective Interval history: seen with caregiver at bedside who comes to check on her daily and on day of admission saw her laying on the floor last seen night before baseline per caregiver is ambulatory with a FFW with a seat patient lives with a significant other who is currently in [place] per patient she tried to get up and fell on day of admission denies any chest pain baseline with left sided weakness Physical Exam Vital signs: Vital Signs 06/11/18 13:23 06/11/18 16:00 06/11/18 20:00 Temperature 98 F 97.3 F L Pulse Rate 91 H 88 Respiratory Rate 19 18 32 H Blood Pressure 175/71 H 132/74 Pulse Oximetry 95 94 L 06/12/18 00:00 06/12/18 00:35 06/12/18 04:00 Temperature 98.2 F 97.8 F Pulse Rate 98 H 90 Respiratory Rate 32 H 22 32 H Blood Pressure 136/80 191/93 H Pulse Oximetry 90 L 92 L 06/12/18 05:00 06/12/18 08:00 06/12/18 10:40 Temperature 97.2 F L Pulse Rate 88 Respiratory Rate 26 H 20 Blood Pressure 170/80 H 150/89 H Pulse Oximetry 95 95 Intake & Output 06/11/18 06/12/18 06/12/18 18:59 06:59 18:59 Intake Total 2340 / 2340 480 / 480 Balance 2340 / 2340 480 / 480 Weight 74.8 kg 74.8 kg Intake: IV 2100 / 2100 NS Inj 1,000 ML @ 100 mls/hr IV 2000 / 1999 .CONT .Q10H [facility] Rx#:[id number] Rocephin Inj 1,000 MG In NS Inj 100 / 100 100 ML @ 200 mls/hr IV.SIG Q24H [facility] Rx#:[id number] Oral 240 / 240 480 / 480 Other: # Voids 2 # Incontinent Voids 2 Weight On Admission 74.8 kg Narrative: awake and alert, no acute distress, ff all commands anciteric lungs- decrease breatj sounds irregularly irregular rhythm abdomen- flabby soft, notender extremities n no edmea mild left sided weakness- per patient baseline left leg larger compared to right, + tenderness - Urinary Catheter Management Straight Cath placed during this visit: yes, but has since been removed by the nurse Reason for continuing: Not indwelling catheter Insertion date: 06/10/18 Insertion time: 11:08 Removal date: 06/10/18 Removal time: 11:09 Results - Labs CBC & Chem 7: 06/12/18 05:55 06/12/18 05:55 Laboratory Results - last 24 hr 06/11/18 06/11/18 06/11/18 10:46 10:46 17:48 WBC RBC Hgb Hct MCV MCH MCHC RDW Plt Count MPV Neut % (Auto) Lymph % (Auto) Blair % (Auto) Eos % (Auto) Baso % (Auto) Neut # (Auto) Lymph # (Auto) Blair # (Auto) Eos # (Auto) Baso # (Auto) WBC Differential Differential Comment Sodium 143 Potassium 4.1 Chloride 113 H Carbon Dioxide 15.8 L Anion Gap 14 BUN 26 H Creatinine 1.02 H Estimated GFR 53 L POC Glucose 308 H Random Glucose 300 H Calcium 8.6 D Total Bilirubin 0.9 AST 86 H ALT 67 H Alkaline Phosphatase 126 H Total Creatine Kinase 663 H CK-MB (CK-2) 7.8 H CK-MB (CK-2) % 1.2 Troponin I 2.38 H* D Total Protein 7.1 D Albumin 3.0 L D 06/11/18 06/12/18 06/12/18 20:44 05:55 05:55 WBC 14.5 H RBC 4.29 Hgb 11.9 Hct 36.8 MCV 85.8 MCH 27.7 MCHC 32.2 RDW 15.9 Plt Count 289 MPV 10.8 Neut % (Auto) 74.5 H Lymph % (Auto) 15.6 Blair % (Auto) 8.7 H Eos % (Auto) 0.3 Baso % (Auto) 0.9 Neut # (Auto) 10.8 H Lymph # (Auto) 2.3 Blair # (Auto) 1.3 H Eos # (Auto) 0.0 Baso # (Auto) 0.1 WBC Differential . Differential Comment Auto diff final Sodium 144 Potassium 3.7 Chloride 114 H Carbon Dioxide 14.7 L Anion Gap 15 BUN 29 H Creatinine 0.87 Estimated GFR 64 L POC Glucose 273 H Random Glucose 233 H Calcium 8.5 Total Bilirubin AST ALT Alkaline Phosphatase Total Creatine Kinase 309 H CK-MB (CK-2) 4.6 H CK-MB (CK-2) % 1.5 Troponin I Total Protein Albumin 06/12/18 07:55 WBC RBC Hgb Hct MCV MCH MCHC RDW Plt Count MPV Neut % (Auto) Lymph % (Auto) Blair % (Auto) Eos % (Auto) Baso % (Auto) Neut # (Auto) Lymph # (Auto) Blair # (Auto) Eos # (Auto) Baso # (Auto) WBC Differential Differential Comment Sodium Potassium Chloride Carbon Dioxide Anion Gap BUN Creatinine Estimated GFR POC Glucose 244 H Random Glucose Calcium Total Bilirubin AST ALT Alkaline Phosphatase Total Creatine Kinase CK-MB (CK-2) CK-MB (CK-2) % Troponin I Total Protein Albumin Microbiology 06/10/18 10:45 Blood - Peripheral Aerobic Blood Culture - Preliminary No growth in 2 days 06/10/18 10:45 Blood - Peripheral Anaerobic Blood Culture - Preliminary No growth in 2 days 06/10/18 10:50 Blood - Peripheral Aerobic Blood Culture - Preliminary No growth in 2 days 06/10/18 10:50 Blood - Peripheral Anaerobic Blood Culture - Preliminary No growth in 2 days - Imaging Impressions Chest X-Ray 06/12/18 00:00 CONCLUSION: Improved aeration of the left hemithorax with persistent moderate to large sided left-sided pleural effusion. There is a worsening lung exam within the right hemithorax with new right-sided airspace consolidation versus layering pleural fluid which appears moderate in amount. The right sixth rib fracture appears to be old. Assessment and Plan - Plan 72 years old female Acute Encephalopathy, - MS improved continue neurological checks. Sepsis (leukocytosis, tachycardia, source of infection, CAP),Lactic Acidosis, LA of 2.9 on admission-trending down lactic acid, and wbc and monitor vital sings. keep normotensive. Pt is meeting sepsis criteria at this time with leukocytosis, tachycardia, and source of infection with community acquired pneumonia. CXR reviewed that revealed haziness overlying the L hemithorax suggestive of effusion, along with parenchymal changes in left lung base suggestive of infiltrate. Blood cultures obtained in ED, follow up with final results continue IV antibiotics, azithromycin and ceftriaxone and administer IVF, NS at 100 cc/hr.- decrease IVF rate with CMP to 42 cc/hr monitor for fluid overload. monitor kidney function Continue with supportive care Lasix IV x 1 ordered for today Rhabdomyolysis- - per care give baseline left sided weakness who came to check on her while significant other is in [place]- saw her on the floor next day when she came to check on her- screaming and hollerng last seen night ago - ambulates with a FWW with a seat - patient significant other is in [place] past few days CPK on admission was found to be [id number] continue IVF- but decrease rate with CMP 42 cc/hr monitor CK levels and kidney functions- trending down Atrial Fibrillation, with presenting RVR ACS- NSTEMI Hypertension CMP- EF 20-25% pt denies any CP. she is asymptomatic at this time. EKG reviewed by admission that revealed no acute changes, no st elevation Now better rate control metoprolol. maintain HR below 90 bpm Restarted [facility] Cardiology ff - medical management BB- changed to Coreg continue on home meds- check doppler of left leg Diabetes Mellitus, type II uncontrolled Hold metformin. Continue Accu-Cheks with sliding scale insulin and monitor blood sugar trends for further intervention. Elevated LFTs- can be [employer] or from rhabdom ff LFTs consider imaging studies if persists Suspect chronic kidney disease stage III, non oliguric will monitor and avoid nephrotoxins. - gentle hydation Hisotry of Glaucoma - restart eye drops- per family request DVT prophylaxison Eliquis
[2018-06-12] MEDS: Azithromycin Inj 500 MG in Sodium Chlor 0.9% Inj 250 ML IV.SIG SCH (13:47)
--- NOTE | 2018-06-12 16:41 | US ---
EXAM DATE: 06/12/2018 4:22 PM EDT AGE/SEX: 72 years / Female INDICATIONS: Left leg pain. CLINICAL DATA: This is the patient's initial encounter. Patient reports that signs and symptoms have been present for 2 days and indicates a pain score of 3/10. MEDICAL/SURGICAL HISTORY: Cardiovascular disease. Diabetes. CABG. COMPARISON: [facility], US ABDOMEN COMPLETE, 04/17/2016. . TECHNIQUE: Venous ultrasound of both lower extremities was performed from the inguinal ligament to t he proximal calf. Real-time, color Doppler and spectral tracing, compression and augmentation techni ques were used. FINDINGS: Normal compression of the deep venous system from the inguinal region to the proximal calf . No echogenic clot is seen. Normal response of the venous system to augmentation and respiration. CONCLUSION: No evidence of deep venous thrombosis. Electronically signed by: Sarabjit Jarvis MD 06/12/2018 4:40 PM EDT
[2018-06-12] MEDS ORDERED: Carvedilol 12.5 MG Tablet PO SCH (21:00)
[2018-06-12] MEDS: Timolol 0.5% Drops 5 ML Bottle EACH EYE SCH (21:46)
[2018-06-13 06:05] LABS: Chol/HDL Ratio 6.86 Ratio; HDL Cholesterol 18.2 mg/dL (40.0-60.0)
[2018-06-13 06:10] LABS: Alanine Aminotransferase 79 U/L (10-53); Albumin 2.7 g/dL (3.4-5.0); Alkaline Phosphatase 137 U/L (45-117); Anion Gap 12 meq/L (5-15); Aspartate Aminotransferase 52 U/L (15-37); Blood Urea Nitrogen 41 mg/dL (7-18); Calcium 8.3 mg/dL (8.5-10.1); Carbon Dioxide 16.9 meq/L (21.0-32.0); Chloride 113 meq/L (98-107); Glomerular Filtration Rate 52 mL/min (>89); Glucose,Random 218 mg/dL (74-106); Potassium 3.7 meq/L (3.5-5.1); Sodium 142 meq/L (136-145); Total Protein 6.5 g/dL (6.4-8.2)
[2018-06-13] MEDS: Insulin NovoLOG Aspart Correctional Sugar Inj SQ SCH ×4 (09:21→21:55)
[2018-06-13] MEDS: Gabapentin 300 MG Capsule PO SCH ×2 (09:22→20:47)
[2018-06-13] MEDS: Lisinopril 10 MG Tablet PO SCH (09:22)
[2018-06-13] MEDS: Senna/Docusate Sodium 8.6/50 MG Tablet PO SCH ×2 (09:22→20:47)
[2018-06-13] MEDS: Carvedilol 12.5 MG Tablet PO SCH ×2 (09:22→20:47)
[2018-06-13] MEDS: Timolol 0.5% Drops 5 ML Bottle EACH EYE SCH ×2 (09:23→21:55)
[2018-06-13] MEDS: DUREZOL EACH EYE SCH ×4 (09:23→22:08)
--- NOTE | 2018-06-13 09:36 | P.PNCA ---
<Panfilo Valenzuela - Last Filed: 06/13/18 09:32> Subjective Interval history: Patient seen with Dr. Klein and RN at bedside. Patient feels poorly today and complains of fatigue and tiredness. She feels much more short of breath when she takes off the oxygen to blow her nose. Bilateral pleural effusions noted on chest x-ray yesterday. Physical Exam Vital signs: Vital Signs 06/12/18 10:40 06/12/18 12:00 06/12/18 16:00 Temperature 97.3 F L 98 F Pulse Rate 85 78 Respiratory Rate 20 20 Blood Pressure 145/88 H 117/62 Pulse Oximetry 95 94 L 94 L 06/12/18 20:00 06/13/18 00:00 06/13/18 04:00 Temperature 97.8 F 98 F 98 F Pulse Rate 79 66 71 Respiratory Rate 26 H 25 H 26 H Blood Pressure 127/67 128/65 117/70 Pulse Oximetry 93 L 94 L 93 L 06/13/18 08:00 Temperature 98.2 F Pulse Rate 70 Respiratory Rate 20 Blood Pressure 168/98 H Pulse Oximetry 95 Intake & Output 06/12/18 06/13/18 06/13/18 18:59 06:59 18:59 Intake Total 730 / 730 Balance 730 / 730 Weight 164 lb 14.492 oz Intake: IV 250 / 250 Azithromycin Inj 500 MG In NS 250 / 250 Inj 250 ML @ 250 mls/hr IV.SIG Q24H [facility] Rx#:[id number] Oral 480 / 480 Other: # Incontinent Voids 4 # Bowel Movements 1 Narrative: GENERAL: Well-developed well-nourished. In no acute distress. NECK: No carotid bruits. No JVD. CARDIOVASCULAR: Irregular rate and rhythm. 2/6 ROBERTO CARLOS murmur appreciated. RESPIRATORY: Basilar crackles. MUSCULOSKELETAL: No clubbing or cyanosis. LE edema. NEUROLOGICAL: Awake and alert. Normal speech. - Urinary Catheter Management Straight Cath placed during this visit: yes, but has since been removed by the nurse Reason for continuing: Not indwelling catheter Insertion date: 06/10/18 Insertion time: 11:08 Removal date: 06/10/18 Removal time: 11:09 Assessment and Plan - Plan ASSESSMENT: AMS with syncope NSTEMI Cardiomyopathy, EF 25%, presumed ischemic Acute systolic CHF CAD s/p 3vCABG 12/2014 Atrial Fibrillation DM Large bilateral pleural effusions RECOMMENDATION: -medical management for NSTEMI for now -Started ASA 81mg daily -changed metoprolol tartrate to carvedilol 12.5mg bid -changed enalapril 2.5mg daily to lisinopril 10mg daily -Increase spironolactone to 25mg daily -Start lasix 40mg IV BID -CXR in the a.m. -Pleural effusions do not improve, may need thoracentesis in the next 1-2 days. -continue Eliquis for now -continue telemetry monitoring -Monitor I's and O <Bud Klein - Last Filed: 06/13/18 09:58> Physical Exam Vital signs: Vital Signs 06/12/18 10:40 06/12/18 12:00 06/12/18 16:00 Temperature 97.3 F L 98 F Pulse Rate 85 78 Respiratory Rate 20 20 Blood Pressure 145/88 H 117/62 Pulse Oximetry 95 94 L 94 L 06/12/18 20:00 06/13/18 00:00 06/13/18 04:00 Temperature 97.8 F 98 F 98 F Pulse Rate 79 66 71 Respiratory Rate 26 H 25 H 26 H Blood Pressure 127/67 128/65 117/70 Pulse Oximetry 93 L 94 L 93 L 06/13/18 08:00 Temperature 98.2 F Pulse Rate 70 Respiratory Rate 20 Blood Pressure 168/98 H Pulse Oximetry 95 Intake & Output 06/12/18 06/13/18 06/13/18 18:59 06:59 18:59 Intake Total 730 / 730 Balance 730 / 730 Weight 74.8 kg Intake: IV 250 / 250 Azithromycin Inj 500 MG In NS 250 / 250 Inj 250 ML @ 250 mls/hr IV.SIG Q24H [facility] Rx#:[id number] Oral 480 / 480 Other: # Incontinent Voids 4 # Bowel Movements 1 - Urinary Catheter Management Straight Cath placed during this visit: no Assessment and Plan - Plan -------- Agree with above assessment and plan.
[2018-06-13] MEDS: Spironolactone 25 MG Tablet PO SCH (10:15)
--- NOTE | 2018-06-13 10:29 | P.PN ---
Subjective Interval history: patient seen- awake and alert, feels "crappy" appears short of breath no chest pain, nausea or vomitiing her significant other is still in [place] complains of neuroapthy- states on gabapentin 06/12 seen with caregiver at bedside who comes to check on her daily and on day of admission saw her laying on the floor last seen night before baseline per caregiver is ambulatory with a FFW with a seat patient lives with a significant other who is currently in [place] per patient she tried to get up and fell on day of admission denies any chest pain baseline with left sided weakness Physical Exam Vital signs: Vital Signs 06/12/18 10:40 06/12/18 12:00 06/12/18 16:00 Temperature 97.3 F L 98 F Pulse Rate 85 78 Respiratory Rate 20 20 Blood Pressure 145/88 H 117/62 Pulse Oximetry 95 94 L 94 L 06/12/18 20:00 06/13/18 00:00 06/13/18 04:00 Temperature 97.8 F 98 F 98 F Pulse Rate 79 66 71 Respiratory Rate 26 H 25 H 26 H Blood Pressure 127/67 128/65 117/70 Pulse Oximetry 93 L 94 L 93 L 06/13/18 08:00 Temperature 98.2 F Pulse Rate 70 Respiratory Rate 20 Blood Pressure 168/98 H Pulse Oximetry 95 Intake & Output 06/12/18 06/13/18 06/13/18 18:59 06:59 18:59 Intake Total 730 / 730 Balance 730 / 730 Weight 74.8 kg Intake: IV 250 / 250 Azithromycin Inj 500 MG In NS 250 / 250 Inj 250 ML @ 250 mls/hr IV.SIG Q24H [facility] Rx#:[id number] Oral 480 / 480 Other: # Incontinent Voids 4 # Bowel Movements 1 Narrative: awake and alert, tachypneic- 02 NC ancitric no nuchal rigidity decrease brearth sounds, no rales irregularly irregular rhythm abdomen soft, nontender + edema on exam today - Urinary Catheter Management Straight Cath placed during this visit: yes, but has since been removed by the nurse Reason for continuing: Not indwelling catheter Insertion date: 06/10/18 Insertion time: 11:08 Removal date: 06/10/18 Removal time: 11:09 Results - Labs CBC & Chem 7: 06/12/18 05:55 06/13/18 04:43 Laboratory Results - last 24 hr 06/12/18 06/12/18 06/12/18 12:14 16:58 20:36 Sodium Potassium Chloride Carbon Dioxide Anion Gap BUN Creatinine Estimated GFR POC Glucose 263 H 295 H 235 H Random Glucose Calcium Total Bilirubin AST ALT Alkaline Phosphatase Total Creatine Kinase Total Protein Albumin Triglycerides Cholesterol LDL Cholesterol, Calc HDL Cholesterol Cholesterol/HDL Ratio 06/13/18 06/13/18 06/13/18 04:43 04:43 07:28 Sodium 142 Potassium 3.7 Chloride 113 H Carbon Dioxide 16.9 L Anion Gap 12 BUN 41 H Creatinine 1.04 H Estimated GFR 52 L POC Glucose 239 H Random Glucose 218 H Calcium 8.3 L Total Bilirubin 0.4 AST 52 H ALT 79 H Alkaline Phosphatase 137 H Total Creatine Kinase 124 Total Protein 6.5 D Albumin 2.7 L Triglycerides 146 Cholesterol 125 LDL Cholesterol, Calc 78 HDL Cholesterol 18.2 L Cholesterol/HDL Ratio 6.86 Microbiology 06/10/18 10:45 Blood - Peripheral Aerobic Blood Culture - Preliminary No growth in 2 days 06/10/18 10:45 Blood - Peripheral Anaerobic Blood Culture - Preliminary No growth in 2 days 06/10/18 10:50 Blood - Peripheral Aerobic Blood Culture - Preliminary No growth in 2 days 06/10/18 10:50 Blood - Peripheral Anaerobic Blood Culture - Preliminary No growth in 2 days - Imaging Impressions Chest X-Ray 06/12/18 00:00 CONCLUSION: Improved aeration of the left hemithorax with persistent moderate to large sided left-sided pleural effusion. There is a worsening lung exam within the right hemithorax with new right-sided airspace consolidation versus layering pleural fluid which appears moderate in amount. The right sixth rib fracture appears to be old. Venous Doppler Study 06/12/18 00:00 CONCLUSION: No evidence of deep venous thrombosis. Assessment and Plan - Plan 72 years old female Acute Encephalopathy, - MS improved continue neurological checks. Sepsis (leukocytosis, tachycardia, source of infection, CAP),Lactic Acidosis, LA of 2.9 on admission-trending down lactic acid, and wbc and monitor vital sings. keep normotensive. Pt is meeting sepsis criteria at this time with leukocytosis, tachycardia, and source of infection with community acquired pneumonia. CXR reviewed that revealed haziness overlying the L hemithorax suggestive of effusion, along with parenchymal changes in left lung base suggestive of infiltrate. Blood cultures obtained in ED, follow up with final results continue IV antibiotics, azithromycin and ceftriaxone monitor for fluid overload. monitor kidney function Continue with supportive care Rhabdomyolysis- resolved- creatinine down to 124 - per care give baseline left sided weakness who came to check on her while significant other is in [place]- saw her on the floor next day when she came to check on her- screaming and hollerng last seen night ago - ambulates with a FWW with a seat - patient significant other is in [place] past few days CPK on admission was found to be 1684- now 124. IVF drop down to 42 cc - with CMP DC IVF today Atrial Fibrillation, with presenting RVR- now rate controlled ACS- NSTEMI Hypertension CMP- EF 20-25% with effusion bilateral on XR pt denies any CP. she is asymptomatic at this time. EKG reviewed by admission that revealed no acute changes, no st elevation Now better rate control metoprolol. maintain HR below 90 bpm On [facility] Cardiology ff - medical management BB- changed to Coreg 12.5 mg bid Lisinopril 10 g daily Increase Aldactone to 25 mg daily check doppler of left leg- negative Lasix 40 mg IV q 12 recheck CXR if am- if no improvement- may need thoracentesis per cardiology Diabetes Mellitus, type II uncontrolled Hold metformin. Continue Accu-Cheks with sliding scale insulin and monitor blood sugar trends for further intervention. start her on home NPH- start at 5 unis bid check A1C in am DM neurpathy - Increase her gabapentin to 300 mg bid- home dose Elevated LFTs- can be [employer] or from rhabdomylysis ff LFTs consider imaging studies if persists Suspect chronic kidney disease stage III, non oliguric will monitor and avoid nephrotoxins. - monitor on IV diuretics - FF BMP Hisotry of Glaucoma - restarted eye drops- per family request DVT prophylaxison Eliquis Increase activity as breathing tolertes- per patient uses a FWW at home
[2018-06-13] MEDS: Azithromycin Inj 500 MG in Sodium Chlor 0.9% Inj 250 ML IV.SIG SCH (17:08)
[2018-06-13] MEDS: Acetaminophen 325 MG Tablet PO PRN (18:26)
[2018-06-13] MEDS: BROMFENAC EACH EYE SCH ×3 (21:54→22:08)
[2018-06-14] MEDS: Acetaminophen 325 MG Tablet PO PRN ×2 (03:35→20:38)
--- NOTE | 2018-06-14 09:25 | XR ---
EXAM DATE: 06/14/2018 9:00 AM EDT AGE/SEX: 72 years / Female INDICATIONS: Short of Breath CLINICAL DATA: This is the patient's subsequent encounter. Patient reports that signs and symptoms h ave been present for 1 day and indicates a pain score of 4/10. MEDICAL/SURGICAL HISTORY: Cardiovascular disease. Diabetes mellitus type II. CABG. COMPARISON: [facility], CHEST 1V SINGLE AP, 06/12/2018. . FINDINGS: Large bilateral pleural effusions are present with bibasilar consolidation and/or compressive collaps e not significantly changed. Superimposed pulmonary edema is also suspected. There are no other rader es. CONCLUSION: No significant change in large bilateral pleural effusions worse on the left and bibasilar consolidat ion and/or compressive collapse. Electronically signed by: Charo Gonzalez MD 06/14/2018 9:24 AM EDT
[2018-06-14] MEDS: Lisinopril 10 MG Tablet PO SCH (09:47)
[2018-06-14] MEDS: Carvedilol 12.5 MG Tablet PO SCH ×2 (09:48→20:38)
[2018-06-14] MEDS: Insulin NovoLOG Aspart Correctional Sugar Inj SQ SCH ×4 (09:48→20:38)
[2018-06-14] MEDS: Senna/Docusate Sodium 8.6/50 MG Tablet PO SCH ×2 (09:48→20:38)
[2018-06-14] MEDS: Gabapentin 300 MG Capsule PO SCH ×2 (09:48→20:38)
[2018-06-14] MEDS: Spironolactone 25 MG Tablet PO SCH (09:49)
[2018-06-14] MEDS: DUREZOL EACH EYE SCH ×2 (10:00→20:40)
[2018-06-14] MEDS: Timolol 0.5% Drops 5 ML Bottle EACH EYE SCH ×2 (10:00→20:41)
--- NOTE | 2018-06-14 11:07 | P.PNIM ---
Subjective Interval history: 7-15 seen with caregiver at bedside who comes to check on her daily and on day of admission saw her laying on the floor last seen night before baseline per caregiver is ambulatory with a FFW with a seat patient lives with a significant other who is currently in [place] per patient she tried to get up and fell on day of admission denies any chest pain baseline with left sided weakness 7-16 MEDICATIONS ADJUSTED BY CARDIOLOGY DW RN AND PT AND FAMILY AND CM WILL GET PT AND OT TO EVAL AND TREAT AM LABS INCREASE ACTIVITY Physical Exam Vital signs: Vital Signs 06/13/18 12:00 06/13/18 12:23 06/13/18 16:00 Temperature 97.9 F 97.2 F L Pulse Rate 60 71 Respiratory Rate 20 20 Blood Pressure 122/65 116/60 Pulse Oximetry 97 95 97 06/13/18 20:00 06/14/18 00:00 06/14/18 04:00 Temperature 98 F 97.1 F L 97.3 F L Pulse Rate 69 61 52 L Respiratory Rate 19 18 20 Blood Pressure 137/86 97/57 L 132/66 Pulse Oximetry 94 L 96 95 06/14/18 08:00 06/14/18 08:30 06/14/18 09:57 Temperature 97.3 F L Pulse Rate 73 Respiratory Rate 18 Blood Pressure 142/78 H Pulse Oximetry 97 97 Intake & Output 06/13/18 06/14/18 06/14/18 18:59 06:59 18:59 Intake Total 120 / 120 Output Total 800 / 800 Balance -680 / -680 Weight 74.9 kg Intake: Oral 120 / 120 Output: Urine 800 / 800 Other: Date of Last Bowel Movement 06/13/18 06/13/18 # Bowel Movements 0 Narrative: GENERAL: Awake alert and oriented 3 talkative and cooperative --getting back to her normal personality per family at bedside SKIN: Warm and dry. HEAD: Atraumatic. Normocephalic. EYES: Pupils equal and round. No scleral icterus. No injection or drainage. Extraocular muscles intact ENT: No nasal bleeding or discharge. Mucous membranes pink and moist. Tongue is midline NECK: Trachea midline. No JVD. Supple CARDIOVASCULAR: IRRegular rate and rhythm. S1-S2 no S3 or S4 RESPIRATORY: No accessory muscle use. Decreased breath sounds on the left. Breath sounds equal bilaterally. GASTROINTESTINAL: Abdomen soft, non-tender, nondistended. Hepatic and splenic margins not palpable. MUSCULOSKELETAL: Extremities without clubbing, cyanosis, or edema. No obvious deformities. NEUROLOGICAL: Awake and alert. No obvious cranial nerve deficits. Motor grossly within normal limits. 4 out of 5 muscle strength in the arms and legs. Normal speech. PSYCHIATRIC: Appropriate mood and affect; insight and judgment ABnormal. - Urinary Catheter Management Straight Cath placed during this visit: yes, but has since been removed by the nurse Reason for continuing: Not indwelling catheter Insertion date: 06/10/18 Insertion time: 11:08 Removal date: 06/10/18 Removal time: 11:09 Results - Labs CBC & Chem 7: 06/12/18 05:55 06/13/18 04:43 Laboratory Results - last 24 hr 06/13/18 06/13/18 06/13/18 12:35 17:16 20:46 POC Glucose 237 H 282 H 246 H 06/14/18 09:14 POC Glucose 213 H Microbiology 06/10/18 10:45 Blood - Peripheral Aerobic Blood Culture - Preliminary No growth in 3 days 06/10/18 10:45 Blood - Peripheral Anaerobic Blood Culture - Preliminary No growth in 3 days 06/10/18 10:50 Blood - Peripheral Aerobic Blood Culture - Preliminary No growth in 3 days 06/10/18 10:50 Blood - Peripheral Anaerobic Blood Culture - Preliminary No growth in 3 days - Imaging Impressions Chest X-Ray 06/14/18 00:00 CONCLUSION: No significant change in large bilateral pleural effusions worse on the left and bibasilar consolidation and/or compressive collapse. Assessment and Plan - Plan 72 years old female Acute Encephalopathy, - MS improved continue neurological checks.--Much improved per family at the bedside Sepsis (leukocytosis, tachycardia, source of infection, CAP),Lactic Acidosis, LA of 2.9 on admission-trending down lactic acid, and wbc and monitor vital sings. keep normotensive. Pt is meeting sepsis criteria at this time with leukocytosis, tachycardia, and source of infection with community acquired pneumonia. CXR reviewed that revealed haziness overlying the L hemithorax suggestive of effusion, along with parenchymal changes in left lung base suggestive of infiltrate. Blood cultures obtained in ED, follow up with final results continue IV antibiotics, azithromycin and ceftriaxone monitor for fluid overload. monitor kidney function Continue with supportive care Much improved per family at bedside Rhabdomyolysis- resolved- creatinine down to 124 - per care give baseline left sided weakness who came to check on her while significant other is in [place]- saw her on the floor next day when she came to check on her- screaming and hollerng last seen night ago - ambulates with a FWW with a seat - patient significant other is in [place] past few days CPK on admission was found to be 1684- now 124. IVF drop down to 42 cc - with CMP DC IVF today Continue physical therapy and Occupational Therapy Atrial Fibrillation, with presenting RVR- now rate controlled ACS- NSTEMI Hypertension CMP- EF 20-25% with effusion bilateral on XR pt denies any CP. she is asymptomatic at this time. EKG reviewed by admission that revealed no acute changes, no st elevation Now better rate control metoprolol. maintain HR below 90 bpm On eliquis Cardiology ff - medical management BB- changed to Coreg 12.5 mg bid Lisinopril 10 g daily Increase Aldactone to 25 mg daily check doppler of left leg- negative Lasix 40 mg IV q 12 recheck CXR if am- if no improvement- may need thoracentesis per cardiology We will defer to cardiology Diabetes Mellitus, type II uncontrolled Hold metformin. Continue Accu-Cheks with sliding scale insulin and monitor blood sugar trends for further intervention. 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 - monitor on IV diuretics - FF BMP History of Glaucoma - restarted eye drops- per family request DVT prophylaxison Eliquis Increase activity as breathing tolerates- per patient uses a FWW at home Code Status: FULL CODE Discussed Condition With: RN AND PT AND CASE MANAGE Discharge Planning: Discussed with case management and patient and family WILL PROBABLY NEED SNF VS C
[2018-06-14] MEDS: Azithromycin Inj 500 MG in Sodium Chlor 0.9% Inj 250 ML IV.SIG SCH (13:54)
[2018-06-14] MEDS: BROMFENAC EACH EYE SCH (20:41)
--- NOTE | 2018-06-15 08:17 | P.PNCA ---
Subjective Interval history: patient seen and examined. breathing better today and no chest pain or sob. complains of constant leg pains from neuropathy. No labs completed in 2 days? Physical Exam Vital signs: Vital Signs 06/14/18 08:30 06/14/18 09:57 06/14/18 12:00 Temperature 97.8 F Pulse Rate 76 Respiratory Rate 18 Blood Pressure 142/78 H 168/74 H Pulse Oximetry 97 94 L 06/14/18 12:27 06/14/18 15:50 06/14/18 16:00 Temperature 97.4 F L Pulse Rate 65 68 71 Respiratory Rate 17 Blood Pressure 129/60 Pulse Oximetry 97 06/14/18 16:46 06/14/18 20:00 06/15/18 00:00 Temperature 97.9 F 97.5 F L Pulse Rate 72 79 Respiratory Rate 17 18 Blood Pressure 160/78 H 156/73 H Pulse Oximetry 94 L 93 L 94 L 06/15/18 04:00 Temperature 97.7 F Pulse Rate 64 Respiratory Rate 18 Blood Pressure 121/60 Pulse Oximetry 98 Intake & Output 06/14/18 06/15/18 06/15/18 18:59 06:59 18:59 Intake Total 360 / 360 480 / 480 Output Total 1700 / 1700 800 / 800 900 / 900 Balance -1340 / -1340 -320 / -320 -900 / -900 Weight 73.9 kg Intake: Oral 360 / 360 480 / 480 Output: Urine 1700 / 1700 800 / 800 900 / 900 Other: # Incontinent Voids 2 Date of Last Bowel Movement 06/13/18 06/14/18 # Bowel Movements 0 Narrative: GENERAL: Awake alert and oriented 3 talkative and cooperative SKIN: Warm and dry. HEAD: Atraumatic. Normocephalic. NECK: Trachea midline. No JVD. Supple CARDIOVASCULAR: IRRegular rhythm, regular rate. S1-S2 no S3 or S4 RESPIRATORY: No accessory muscle use. Decreased breath sounds on the left. Breath sounds equal bilaterally. GASTROINTESTINAL: Abdomen soft, non-tender, nondistended. MUSCULOSKELETAL: Extremities without clubbing, cyanosis, trace bL LE edema. No obvious deformities. NEUROLOGICAL: Awake and alert. No obvious cranial nerve deficits. Normal speech. - Urinary Catheter Management Straight Cath placed during this visit: yes, but has since been removed by the nurse Reason for continuing: Not indwelling catheter Insertion date: 06/10/18 Insertion time: 11:08 Removal date: 06/10/18 Removal time: 11:09 Assessment and Plan - Plan ASSESSMENT: AMS with syncope, cognition now at/near baseline NSTEMI Cardiomyopathy, EF 25%, presumed ischemic Acute systolic CHF CAD s/p 3vCABG 12/2014 Atrial Fibrillation DM Large bilateral pleural effusions RECOMMENDATION: -labs today to eval Hgb, electrolytes, renal function please -medical management for NSTEMI -continue ASA 81mg daily, carvedilol 12.5mg bid, lisinopril 10mg daily, spironolactone to 25mg daily, lasix 40mg IV BID -CXR today -Pleural effusions not improved, may need thoracentesis -continue Eliquis for now -continue telemetry monitoring -Monitor I's and O
[2018-06-15 08:28] LABS: Baso # (Auto) 0.1 th/mm3 (0.0-0.2); Baso % (Auto) 0.5 % (0.0-2.0); Eos # (Auto) 0.2 th/mm3 (0.0-0.4); Eos % (Auto) 1.4 % (0.0-4.0); Hematocrit 38.4 % (35.0-46.0); Hemoglobin 12.5 gm/dL (11.6-15.3); Lymph # (Auto) 1.7 th/mm3 (1.0-4.8); Lymph % (Auto) 13.7 % (9.0-44.0); Mean Corpuscular HGB Conc 32.5 % (32.0-36.0); Mean Corpuscular Hemoglobin 27.8 pg (27.0-34.0); Mean Corpuscular Volume 85.5 fL (80.0-100.0); Mean Platelet Volume 10.8 fL (7.0-11.0); Mono # (Auto) 0.9 th/mm3 (0.0-0.9); Mono % (Auto) 7.4 % (0.0-8.0); Neut # (Auto) 9.4 th/mm3 (1.8-7.7); Platelet Count 316 th/mm3 (150-450); Red Blood Count 4.49 mil/mm3 (4.00-5.30); Red Cell Distribution Width 15.9 % (11.6-17.2); White Blood Count 12.2 th/mm3 (4.0-11.0)
[2018-06-15] MEDS: Gabapentin 300 MG Capsule PO SCH ×2 (08:47→20:21)
[2018-06-15] MEDS: Senna/Docusate Sodium 8.6/50 MG Tablet PO SCH ×2 (08:47→20:22)
[2018-06-15] MEDS: Lisinopril 10 MG Tablet PO SCH (08:47)
[2018-06-15] MEDS: Carvedilol 12.5 MG Tablet PO SCH ×2 (08:47→20:20)
[2018-06-15] MEDS: Spironolactone 25 MG Tablet PO SCH (08:48)
[2018-06-15] MEDS: Insulin NovoLOG Aspart Correctional Sugar Inj SQ SCH ×4 (08:48→20:26)
[2018-06-15] MEDS: DUREZOL EACH EYE SCH ×2 (08:51→20:22)
[2018-06-15 08:52] LABS: Alanine Aminotransferase 67 U/L (10-53); Albumin 2.5 g/dL (3.4-5.0); Anion Gap 12 meq/L (5-15); Aspartate Aminotransferase 27 U/L (15-37); Blood Urea Nitrogen 30 mg/dL (7-18); Calcium 8.3 mg/dL (8.5-10.1); Carbon Dioxide 22.3 meq/L (21.0-32.0); Chloride 108 meq/L (98-107); Magnesium 1.9 mg/dL (1.5-2.5); Phosphorus 3.4 mg/dL (2.5-4.9); Potassium 3.5 meq/L (3.5-5.1); Sodium 142 meq/L (136-145)
[2018-06-15] MEDS: Timolol 0.5% Drops 5 ML Bottle EACH EYE SCH ×3 (08:52→21:00)
[2018-06-15 09:11] LABS: Alkaline Phosphatase 124 U/L (45-117); Free T4 (Free Thyroxine) 1.35 ng/dL (0.76-1.46); Glomerular Filtration Rate 66 mL/min (>89); Glucose,Random 197 mg/dL (74-106); Total Protein 6.2 g/dL (6.4-8.2)
[2018-06-15 09:22] LABS: Creatine Kinase 52 U/L (26-192)
--- NOTE | 2018-06-15 11:08 | P.PNIM ---
Subjective Interval history: 06-13 seen with caregiver at bedside who comes to check on her daily and on day of admission saw her laying on the floor last seen night before baseline per caregiver is ambulatory with a FFW with a seat patient lives with a significant other who is currently in [place] per patient she tried to get up and fell on day of admission denies any chest pain baseline with left sided weakness 7-16 MEDICATIONS ADJUSTED BY CARDIOLOGY DW RN AND PT AND FAMILY AND CM WILL GET PT AND OT TO EVAL AND TREAT AM LABS INCREASE ACTIVITY 06-15 REFUSED CHEST XRAY NEEDS TO HAVE IT DONE SO WE CAN DETERMINE THERAPIES DW PT AND RN AM LABS STILL SOME SOB Physical Exam Vital signs: Vital Signs 06/14/18 12:00 06/14/18 12:27 06/14/18 15:50 Temperature 97.8 F Pulse Rate 76 65 68 Respiratory Rate 18 Blood Pressure 168/74 H Pulse Oximetry 94 L 06/14/18 16:00 06/14/18 16:46 06/14/18 20:00 Temperature 97.4 F L 97.9 F Pulse Rate 71 72 Respiratory Rate 17 17 Blood Pressure 129/60 160/78 H Pulse Oximetry 97 94 L 93 L 06/15/18 00:00 06/15/18 04:00 06/15/18 08:00 Temperature 97.5 F L 97.7 F 97.6 F Pulse Rate 79 64 65 Respiratory Rate 18 18 20 Blood Pressure 156/73 H 121/60 149/70 H Pulse Oximetry 94 L 98 95 Intake & Output 06/14/18 06/15/18 06/15/18 18:59 06:59 18:59 Intake Total 360 / 360 480 / 480 Output Total 1700 / 1700 800 / 800 900 / 900 Balance -1340 / -1340 -320 / -320 -900 / -900 Weight 73.9 kg Intake: Oral 360 / 360 480 / 480 Output: Urine 1700 / 1700 800 / 800 900 / 900 Other: # Incontinent Voids 2 Date of Last Bowel Movement 06/13/18 06/14/18 # Bowel Movements 0 Narrative: GENERAL: Awake alert and oriented 3 talkative and cooperative SKIN: Warm and dry. HEAD: Atraumatic. Normocephalic. NECK: Trachea midline. No JVD. Supple CARDIOVASCULAR: IRRegular rhythm, regular rate. S1-S2 no S3 or S4 RESPIRATORY: No accessory muscle use. Decreased breath sounds on the left. Breath sounds equal bilaterally. GASTROINTESTINAL: Abdomen soft, non-tender, nondistended. MUSCULOSKELETAL: Extremities without clubbing, cyanosis, trace bL LE edema. No obvious deformities. NEUROLOGICAL: Awake and alert. No obvious cranial nerve deficits. Normal speech. - Urinary Catheter Management Straight Cath placed during this visit: yes, but has since been removed by the nurse Reason for continuing: Not indwelling catheter Insertion date: 06/10/18 Insertion time: 11:08 Removal date: 06/10/18 Removal time: 11:09 Results - Labs CBC & Chem 7: 06/15/18 06:55 06/15/18 04:55 Laboratory Results - last 24 hr 06/14/18 06/14/18 06/14/18 12:56 16:37 20:37 WBC RBC Hgb Hct MCV MCH MCHC RDW Plt Count MPV Neut % (Auto) Lymph % (Auto) Frederick % (Auto) Eos % (Auto) Baso % (Auto) Neut # (Auto) Lymph # (Auto) Frederick # (Auto) Eos # (Auto) Baso # (Auto) WBC Differential Differential Comment Sodium Potassium Chloride Carbon Dioxide Anion Gap BUN Creatinine Estimated GFR POC Glucose 224 H 224 H 273 H Random Glucose Calcium Phosphorus Magnesium Total Bilirubin Direct Bilirubin AST ALT Alkaline Phosphatase Total Creatine Kinase Total Protein Albumin TSH Free T4 06/15/18 06/15/18 06/15/18 04:55 06:55 07:58 WBC 12.2 H RBC 4.49 Hgb 12.5 Hct 38.4 MCV 85.5 MCH 27.8 MCHC 32.5 RDW 15.9 Plt Count 316 MPV 10.8 Neut % (Auto) 77.0 H Lymph % (Auto) 13.7 Frederick % (Auto) 7.4 Eos % (Auto) 1.4 Baso % (Auto) 0.5 Neut # (Auto) 9.4 H Lymph # (Auto) 1.7 Frederick # (Auto) 0.9 Eos # (Auto) 0.2 Baso # (Auto) 0.1 WBC Differential . Differential Comment Auto diff final Sodium 142 Potassium 3.5 Chloride 108 H Carbon Dioxide 22.3 Anion Gap 12 BUN 30 H Creatinine 0.84 Estimated GFR 66 L POC Glucose 211 H Random Glucose 197 H Calcium 8.3 L Phosphorus 3.4 Magnesium 1.9 Total Bilirubin 0.5 Direct Bilirubin 0.1 AST 27 ALT 67 H Alkaline Phosphatase 124 H Total Creatine Kinase 52 Total Protein 6.2 L Albumin 2.5 L TSH 2.690 Free T4 1.35 Microbiology 06/10/18 10:45 Blood - Peripheral Aerobic Blood Culture - Final No growth in 5 days 06/10/18 10:45 Blood - Peripheral Anaerobic Blood Culture - Final No growth in 5 days 06/10/18 10:50 Blood - Peripheral Aerobic Blood Culture - Final No growth in 5 days 06/10/18 10:50 Blood - Peripheral Anaerobic Blood Culture - Final No growth in 5 days Assessment and Plan - Plan 72 years old female Acute Encephalopathy, - MS improved continue neurological checks.--Much improved per family at the bedside Sepsis (leukocytosis, tachycardia, source of infection, CAP),Lactic Acidosis, LA of 2.9 on admission-trending down lactic acid, and wbc and monitor vital sings. keep normotensive. Pt is meeting sepsis criteria at this time with leukocytosis, tachycardia, and source of infection with community acquired pneumonia. CXR reviewed that revealed haziness overlying the L hemithorax suggestive of effusion, along with parenchymal changes in left lung base suggestive of infiltrate. Blood cultures obtained in ED, follow up with final results continue IV antibiotics, azithromycin and ceftriaxone monitor for fluid overload. monitor kidney function Continue with supportive care Much improved per family at bedside Rhabdomyolysis- resolved- creatinine down to 124 - per care give baseline left sided weakness who came to check on her while significant other is in [place]- saw her on the floor next day when she came to check on her- screaming and hollerng last seen night ago - ambulates with a FWW with a seat - patient significant other is in [place] past few days CPK on admission was found to be 1684- now 124. IVF drop down to 42 cc - with CMP DC IVF today Continue physical therapy and Occupational Therapy Atrial Fibrillation, with presenting RVR- now rate controlled ACS- NSTEMI Hypertension CMP- EF 20-25% with effusion bilateral on XR pt denies any CP. she is asymptomatic at this time. EKG reviewed by admission that revealed no acute changes, no st elevation Now better rate control metoprolol. maintain HR below 90 bpm On Primo1D Cardiology ff - medical management BB- changed to Coreg 12.5 mg bid Lisinopril 10 g daily Increase Aldactone to 25 mg daily check doppler of left leg- negative Lasix 40 mg IV q 12 recheck CXR if am- if no improvement- may need thoracentesis per cardiology We will defer to cardiology REFUSED CHEST XRAY TODAY- EXPLAINED NEED TO BE DONE AND REORDERED AM LABS Diabetes Mellitus, type II uncontrolled Hold metformin. Continue Accu-Cheks with sliding scale insulin and monitor blood sugar trends for further intervention. 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 - monitor on IV diuretics - FF BMP History of Glaucoma - restarted eye drops- per family request DVT prophylaxison Eliquis Increase activity as breathing tolerates- per patient uses a FWW at home Code Status: FULL CODE Discussed Condition With: RN AND PT Discharge Planning: Discussed with case management and patient and family WILL PROBABLY NEED SNF VS C
[2018-06-15 12:44] LABS: Hemoglobin A1c 9.2 % (4.3-6.0)
--- NOTE | 2018-06-15 13:04 | XR ---
EXAM DATE: 06/15/2018 1:02 PM EDT AGE/SEX: 72 years / Female INDICATIONS: . Evaluate for pleural effusion. CLINICAL DATA: This is the patient's subsequent encounter. Patient reports that signs and symptoms h ave been present for 4 - 6 days and indicates a pain score of 0/10. MEDICAL/SURGICAL HISTORY: Cardiovascular disease. Diabetes mellitus type II. CABG. [place] [facility] [place]14/[place]. . FINDINGS: Large bilateral pleural effusions are present with bibasilar consolidation and/or compressive collaps e not significantly changed. Mild pulmonary edema is also suspected. CONCLUSION: No appreciable change. Electronically signed by: Charo Gonzalez MD 06/15/2018 1:03 PM EDT
[2018-06-15] MEDS: Azithromycin Inj 500 MG in Sodium Chlor 0.9% Inj 250 ML IV.SIG SCH (13:33)
[2018-06-15] MEDS: BROMFENAC EACH EYE SCH (20:24)
[2018-06-16] MEDS: DUREZOL EACH EYE SCH ×3 (02:09→20:48)
[2018-06-16 07:04] LABS: Baso # (Auto) 0.3 th/mm3 (0.0-0.2); Baso % (Auto) 2.4 % (0.0-2.0); Eos # (Auto) 0.1 th/mm3 (0.0-0.4); Eos % (Auto) 0.9 % (0.0-4.0); Hematocrit 36.3 % (35.0-46.0); Lymph # (Auto) 1.9 th/mm3 (1.0-4.8); Mean Corpuscular Hemoglobin 28.1 pg (27.0-34.0); Mean Corpuscular Volume 85.2 fL (80.0-100.0); Mean Platelet Volume 10.6 fL (7.0-11.0); Mono % (Auto) 7.8 % (0.0-8.0); Neut # (Auto) 9.5 th/mm3 (1.8-7.7); Neut % (Auto) 73.9 % (16.0-70.0); Platelet Count 373 th/mm3 (150-450); Red Blood Count 4.26 mil/mm3 (4.00-5.30); Red Cell Distribution Width 15.8 % (11.6-17.2); White Blood Count 12.9 th/mm3 (4.0-11.0)
[2018-06-16 07:09] LABS: INR 1.2 Ratio; Prothrombin Time 11.7 sec (9.8-11.6)
[2018-06-16 07:32] LABS: Albumin 2.8 g/dL (3.4-5.0); Anion Gap 13 meq/L (5-15); Aspartate Aminotransferase 21 U/L (15-37); Blood Urea Nitrogen 23 mg/dL (7-18); Carbon Dioxide 23.7 meq/L (21.0-32.0); Chloride 103 meq/L (98-107); Glomerular Filtration Rate 61 mL/min (>89); Glucose,Random 158 mg/dL (74-106); Magnesium 2.2 mg/dL (1.5-2.5); Potassium 3.3 meq/L (3.5-5.1); Sodium 140 meq/L (136-145)
[2018-06-16 07:33] LABS: Alanine Aminotransferase 56 U/L (10-53); Phosphorus 3.2 mg/dL (2.5-4.9)
--- NOTE | 2018-06-16 07:33 | P.PNCA ---
Subjective Interval history: Patient seen and examined. No dyspnea or chest pain. CXR 06/15 shows persistent large bilateral pleural effusions. Labs were completed and reviewed. Physical Exam Vital signs: Vital Signs 06/15/18 08:00 06/15/18 11:42 06/15/18 12:00 Temperature 97.6 F Pulse Rate 65 63 Respiratory Rate 20 Blood Pressure 149/70 H Pulse Oximetry 95 95 06/15/18 16:00 06/15/18 17:44 06/15/18 20:00 Temperature 98.1 F 98.3 F Pulse Rate 73 73 Respiratory Rate 20 17 Blood Pressure 137/78 121/57 L Pulse Oximetry 95 95 94 L 06/16/18 00:00 06/16/18 04:00 Temperature 98.9 F 97.7 F Pulse Rate 79 67 Respiratory Rate 19 17 Blood Pressure 110/68 107/79 Pulse Oximetry 97 96 Intake & Output 06/15/18 06/16/18 06/16/18 18:59 06:59 18:59 Intake Total 480 / 480 590 / 590 Output Total 1400 / 1400 750 / 750 Balance -920 / -920 -160 / -160 Weight 72.7 kg Intake: IV 350 / 350 Azithromycin Inj 500 MG In NS 250 / 250 Inj 250 ML @ 250 mls/hr IV.SIG Q24H SAUNDRA Rx#:[id number] Rocephin Inj 1,000 MG In NS Inj 100 / 100 100 ML @ 200 mls/hr IV.SIG Q24H SAUNDRA Rx#:[id number] Oral 480 / 480 240 / 240 Output: Urine 1400 / 1400 750 / 750 Other: # Voids 1 # Incontinent Voids 3 Narrative: GENERAL: Awake alert and oriented 3 talkative and cooperative SKIN: Warm and dry. HEAD: Atraumatic. Normocephalic. NECK: Trachea midline. No JVD. Supple CARDIOVASCULAR: IRRegular rhythm, regular rate. S1-S2 no S3 or S4 RESPIRATORY: No accessory muscle use. Decreased breath sounds on the left. Breath sounds equal bilaterally. GASTROINTESTINAL: Abdomen soft, non-tender, nondistended. MUSCULOSKELETAL: Extremities without clubbing, cyanosis, trace bL LE edema. No obvious deformities. NEUROLOGICAL: Awake and alert. No obvious cranial nerve deficits. Normal speech. - Urinary Catheter Management Straight Cath placed during this visit: yes, but has since been removed by the nurse Reason for continuing: Not indwelling catheter Insertion date: 06/10/18 Insertion time: 11:08 Removal date: 06/10/18 Removal time: 11:09 Assessment and Plan - Plan ASSESSMENT: Large bilateral pleural effusions AMS with syncope, cognition now at/near baseline NSTEMI Cardiomyopathy, EF 25%, presumed ischemic Acute systolic CHF CAD s/p 3vCABG 12/2014 Atrial Fibrillation DM RECOMMENDATION: -schedule thoracentesis please -continue ASA 81mg daily, atorvastatin 20mg daily, increase carvedilol to 25mg bid, lisinopril 10mg daily, spironolactone to 25mg daily, lasix 40mg IV BID -Lipid profile with AM labs -continue Eliquis -maintain K+>4 -Monitor I's and O
[2018-06-16 07:35] LABS: Alkaline Phosphatase 130 U/L (45-117); Total Protein 6.9 g/dL (6.4-8.2)
[2018-06-16] MEDS: Senna/Docusate Sodium 8.6/50 MG Tablet PO SCH ×2 (08:58→20:46)
[2018-06-16] MEDS: Carvedilol 12.5 MG Tablet PO SCH ×2 (08:58→20:46)
[2018-06-16] MEDS: Gabapentin 300 MG Capsule PO SCH ×2 (08:58→20:46)
[2018-06-16] MEDS: Lisinopril 10 MG Tablet PO SCH (08:58)
[2018-06-16] MEDS: Insulin NovoLOG Aspart Correctional Sugar Inj SQ SCH ×4 (08:59→20:54)
[2018-06-16] MEDS: Spironolactone 25 MG Tablet PO SCH (08:59)
[2018-06-16] MEDS: Timolol 0.5% Drops 5 ML Bottle EACH EYE SCH ×2 (09:01→20:50)
--- NOTE | 2018-06-16 12:23 | P.PNIM ---
Subjective Interval history: 7 seen with caregiver at bedside who comes to check on her daily and on day of admission saw her laying on the floor last seen night before baseline per caregiver is ambulatory with a FFW with a seat patient lives with a significant other who is currently in NH per patient she tried to get up and fell on day of admission denies any chest pain baseline with left sided weakness 7-16 MEDICATIONS ADJUSTED BY CARDIOLOGY DW RN AND PT AND FAMILY AND CM WILL GET PT AND OT TO EVAL AND TREAT AM LABS INCREASE ACTIVITY 06-15 REFUSED CHEST XRAY NEEDS TO HAVE IT DONE SO WE CAN DETERMINE THERAPIES DW PT AND RN AM LABS STILL SOME SOB 06-16 MEDS ADJUSTED BY CARDIO WILL NEED THORACENTESIS TOMORROW WITH IR IF ABLE TO BE DONE DW RN AND PT AND FAMILY NEEDS TO LET LABS BE DONE STILL SOB Physical Exam Vital signs: Vital Signs 06/15/18 16:00 06/15/18 17:44 06/15/18 20:00 Temperature 98.1 F 98.3 F Pulse Rate 73 73 Respiratory Rate 20 17 Blood Pressure 137/78 121/57 L Pulse Oximetry 95 95 94 L 06/16/18 00:00 06/16/18 04:00 06/16/18 08:00 Temperature 98.9 F 97.7 F 97.4 F L Pulse Rate 79 67 67 Respiratory Rate 19 17 20 Blood Pressure 110/68 107/79 148/71 H Pulse Oximetry 97 96 94 L 06/16/18 10:39 Temperature Pulse Rate Respiratory Rate Blood Pressure Pulse Oximetry 92 L Intake & Output 06/15/18 06/16/18 06/16/18 18:59 06:59 18:59 Intake Total 480 / 480 590 / 590 Output Total 1400 / 1400 750 / 750 Balance -920 / -920 -160 / -160 Weight 72.7 kg Intake: IV 350 / 350 Azithromycin Inj 500 MG In NS 250 / 250 Inj 250 ML @ 250 mls/hr IV.SIG Q24H SAUNDRA Rx#:[id number] Rocephin Inj 1,000 MG In NS Inj 100 / 100 100 ML @ 200 mls/hr IV.SIG Q24H SAUNDRA Rx#:[id number] Oral 480 / 480 240 / 240 Output: Urine 1400 / 1400 750 / 750 Other: # Voids 1 # Incontinent Voids 3 Narrative: GENERAL: Awake alert and oriented 3 talkative and cooperative SKIN: Warm and dry. HEAD: Atraumatic. Normocephalic. NECK: Trachea midline. No JVD. Supple CARDIOVASCULAR: IRRegular rhythm, regular rate. S1-S2 no S3 or S4 RESPIRATORY: No accessory muscle use. Decreased breath sounds on the left. Breath sounds equal bilaterally. GASTROINTESTINAL: Abdomen soft, non-tender, nondistended. MUSCULOSKELETAL: Extremities without clubbing, cyanosis, NO bL LE edema. No obvious deformities. NEUROLOGICAL: Awake and alert. No obvious cranial nerve deficits. Normal speech. INSIGHT AND JUDGEMENT IS LIMITED MOOD AND BEHAVIOR IS SOMEWHAT INAPPROPRIATE - Urinary Catheter Management Straight Cath placed during this visit: yes, but has since been removed by the nurse Reason for continuing: Not indwelling catheter Insertion date: 06/10/18 Insertion time: 11:08 Removal date: 06/10/18 Removal time: 11:09 Results - Labs CBC & Chem 7: 06/16/18 05:12 06/16/18 05:12 Laboratory Results - last 24 hr 06/15/18 06/15/18 06/15/18 06:55 13:33 17:15 WBC RBC Hgb Hct MCV MCH MCHC RDW Plt Count MPV Neut % (Auto) Lymph % (Auto) Island % (Auto) Eos % (Auto) Baso % (Auto) Neut # (Auto) Lymph # (Auto) Island # (Auto) Eos # (Auto) Baso # (Auto) WBC Differential Differential Comment PT INR Sodium Potassium Chloride Carbon Dioxide Anion Gap BUN Creatinine Estimated GFR POC Glucose 244 H 205 H Random Glucose Hemoglobin A1c 9.2 H Calcium Phosphorus Magnesium Total Bilirubin AST ALT Alkaline Phosphatase Total Protein Albumin 06/15/18 06/16/18 06/16/18 20:25 05:12 05:12 WBC 12.9 H RBC 4.26 Hgb 12.0 Hct 36.3 MCV 85.2 MCH 28.1 MCHC 33.0 RDW 15.8 Plt Count 373 MPV 10.6 Neut % (Auto) 73.9 H Lymph % (Auto) 15.0 Island % (Auto) 7.8 Eos % (Auto) 0.9 Baso % (Auto) 2.4 H Neut # (Auto) 9.5 H Lymph # (Auto) 1.9 Island # (Auto) 1.0 H Eos # (Auto) 0.1 Baso # (Auto) 0.3 H WBC Differential . Differential Comment Auto diff final PT 11.7 H INR 1.2 Sodium Potassium Chloride Carbon Dioxide Anion Gap BUN Creatinine Estimated GFR POC Glucose 273 H Random Glucose Hemoglobin A1c Calcium Phosphorus Magnesium Total Bilirubin AST ALT Alkaline Phosphatase Total Protein Albumin 06/16/18 06/16/18 06/16/18 05:12 07:29 12:03 WBC RBC Hgb Hct MCV MCH MCHC RDW Plt Count MPV Neut % (Auto) Lymph % (Auto) Island % (Auto) Eos % (Auto) Baso % (Auto) Neut # (Auto) Lymph # (Auto) Island # (Auto) Eos # (Auto) Baso # (Auto) WBC Differential Differential Comment PT INR Sodium 140 Potassium 3.3 L Chloride 103 Carbon Dioxide 23.7 Anion Gap 13 BUN 23 H Creatinine 0.90 Estimated GFR 61 L POC Glucose 174 H 244 H Random Glucose 158 H Hemoglobin A1c Calcium 9.0 Phosphorus 3.2 Magnesium 2.2 Total Bilirubin 0.6 AST 21 ALT 56 H Alkaline Phosphatase 130 H Total Protein 6.9 D Albumin 2.8 L Microbiology 06/10/18 10:45 Blood - Peripheral Aerobic Blood Culture - Final No growth in 5 days 06/10/18 10:45 Blood - Peripheral Anaerobic Blood Culture - Final No growth in 5 days 06/10/18 10:50 Blood - Peripheral Aerobic Blood Culture - Final No growth in 5 days 06/10/18 10:50 Blood - Peripheral Anaerobic Blood Culture - Final No growth in 5 days - Imaging Impressions Chest X-Ray 06/15/18 00:00 CONCLUSION: No appreciable change. Assessment and Plan - Plan 72 years old female Acute Encephalopathy, - MS improved continue neurological checks.--Much improved per family at the bedside Sepsis (leukocytosis, tachycardia, source of infection, CAP),Lactic Acidosis, LA of 2.9 on admission-trending down lactic acid, and wbc and monitor vital sings. keep normotensive. Pt is meeting sepsis criteria at this time with leukocytosis, tachycardia, and source of infection with community acquired pneumonia. CXR reviewed that revealed haziness overlying the L hemithorax suggestive of effusion, along with parenchymal changes in left lung base suggestive of infiltrate. Blood cultures obtained in ED, follow up with final results continue IV antibiotics, azithromycin and ceftriaxone monitor for fluid overload. monitor kidney function Continue with supportive care Much improved per family at bedside Rhabdomyolysis- resolved- creatinine down to 124 - per care give baseline left sided weakness who came to check on her while significant other is in NH- saw her on the floor next day when she came to check on her- screaming and hollerng last seen night ago - ambulates with a FWW with a seat - patient significant other is in NH past few days CPK on admission was found to be 1684- now 124. IVF drop down to 42 cc - with CMP DC IVF today Continue physical therapy and Occupational Therapy Atrial Fibrillation, with presenting RVR- now rate controlled ACS- NSTEMI Hypertension CMP- EF 20-25% with effusion bilateral on XR pt denies any CP. she is asymptomatic at this time. EKG reviewed by admission that revealed no acute changes, no st elevation Now better rate control metoprolol. maintain HR below 90 bpm On eliquis Cardiology ff - medical management BB- changed to Coreg 12.5 mg bid Lisinopril 10 g daily Increase Aldactone to 25 mg daily check doppler of left leg- negative Lasix 40 mg IV q 12 recheck CXR if am- if no improvement- may need thoracentesis per cardiology We will defer to cardiology REFUSED CHEST XRAY TODAY- EXPLAINED NEED TO BE DONE AND REORDERED AM LABS Diabetes Mellitus, type II uncontrolled Hold metformin. Continue Accu-Cheks with sliding scale insulin and monitor blood sugar trends for further intervention. start her on home NPH- start at 5 units bid check A1C in am Sugars remained slightly elevated DM neuropathy - Increase her gabapentin to 300 mg bid- home dose Elevated LFTs- can be [employer] or from rhabdomyolysis ff LFTs consider imaging studies if persists Suspect chronic kidney disease stage III, non oliguric will monitor and avoid nephrotoxins. - monitor on IV diuretics - FF BMP History of Glaucoma - restarted eye drops- per family request DVT prophylaxison Eliquis - HOLD SO THAT CAN GET THORACENTESIS Increase activity as breathing tolerates- per patient uses a FWW at home Code Status: FULL CODE Discussed Condition With: RN AND PT AND FAMILY AND CM Discharge Planning: Discussed with case management and patient and family WILL PROBABLY NEED SNF VS C
[2018-06-16] MEDS: Azithromycin Inj 500 MG in Sodium Chlor 0.9% Inj 250 ML IV.SIG SCH (12:30)
[2018-06-16 12:32] LABS: Activated Partial Thrombo Time 28.8 sec (24.3-30.1); INR 1.2 Ratio; Prothrombin Time 12.6 sec (9.8-11.6)
[2018-06-16] MEDS ORDERED: Lidocaine 1% Inj 30 ML Vial I-DERMAL ONE (14:51)
--- NOTE | 2018-06-16 15:30 | XR ---
EXAM DATE: 06/16/2018 2:16 PM EDT AGE/SEX: 72 years / Female INDICATIONS: Post left side thoracentesis. CLINICAL DATA: This is the patient's subsequent encounter. Patient reports that signs and symptoms h ave been present for 2 days and indicates a pain score of 0/10. MEDICAL/SURGICAL HISTORY: . Cardiovascular disease. Diabetes mellitus type II. . CABG. COMPARISON: [facility] [place], CHEST 2V PA&LAT, 06/15/2018. . FINDINGS: Significant interval improved left-sided aeration following left-sided thoracentesis with minimal res idual airspace disease at the left lung base. Persistent moderate right pleural effusion and airspace disease in the right lower lung zone. Cardiomegaly saw contours are stable. Remainder of the exam is unchanged. CONCLUSION: 1. Significantly improved left lung aeration following left-sided thoracentesis. No significant pneu mothorax. 2. Persistent moderate right pleural effusion and associated right lower lobe airspace disease. Electronically signed by: Nicolás Garduno MD 06/16/2018 3:29 PM EDT
[2018-06-16 16:12] LABS: Total Protein,Pleural Fluid 2.1 gm/dL
--- NOTE | 2018-06-16 16:20 | US ---
EXAM DATE: 06/16/2018 3:03 PM EDT AGE/SEX: 72 years / Female INDICATIONS: Left pleural effusion. CLINICAL DATA: This is the patient's initial encounter. Patient reports that signs and symptoms have been present for 1 day and indicates a pain score of 5/10. MEDICAL/SURGICAL HISTORY: Stroke. Atrial fibrillation. Diabetes. Hard of hearing. Myocardial in farction. CABG. COMPARISON: [facility] [place], US GUIDED THORACENTESIS RIGHT, 06/16/2018. . FLUID: Total volume of 560 cc of clear, red fluid was removed. Fluid was sent to lab for ordered studies. . . TECHNIQUE: Ultrasound guidance for thoracentesis. Thoracentesis. The risks, benefits, and alternatives to ultrasound guided thoracentesis were explained to the patien t in lay simple terms, including the risk of bleeding and infection. Written and verbal informed con sent was obtained. Appropriate area for left thoracentesis was marked under ultrasound guidance with the patient in the upright position. Overlying skin was prepped and draped in the usual sterile fashion and with local anesthetic, a dermatotomy was made with an 11 blade scalpel. A 6 Turkmen thoracentesis catheter was p laced in the pleural space and fluid was removed. Catheter was then removed and a sterile dressing a pplied. There were no immediate complications. The patient tolerated the procedure well and the left the ultrasound suite in stable condition. Chest radiograph is to be obtained. FINDINGS: Moderate-sized pleural effusion. CONCLUSION: 1. Uncomplicated ultrasound-guided left thoracentesis. Electronically signed by: Nicolás Garduno MD 06/16/2018 4:19 PM EDT
[2018-06-16 17:00] LABS: Lymphocytes,Pleural Fluid 80 %; Mesothelial,Pleural Fluid 6 %; Monocytes,Pleural Fluid 1 %; Neutrophils,Pleural Fluid 5 %
[2018-06-16 17:02] LABS: RBC,Pleural Fluid 1019 /mm3 (0-0)
[2018-06-16] MEDS: Acetaminophen 325 MG Tablet PO PRN (17:39)
[2018-06-16] MEDS: BROMFENAC EACH EYE SCH (20:49)
--- NOTE | 2018-06-17 07:47 | P.PNCA ---
<Kathleen Casanova A - Last Filed: 06/17/18 07:40> Subjective Interval history: patient reports no chest pain or dyspnea. s/p left sided thoracentesis yesterday with removal of -500cc fluid. AM labs still pending, watching potassium level closely Physical Exam Vital signs: Vital Signs 06/16/18 08:00 06/16/18 10:39 06/16/18 12:00 Temperature 97.4 F L Pulse Rate 75 68 Respiratory Rate 20 Blood Pressure 148/71 H Pulse Oximetry 94 L 92 L 06/16/18 12:49 06/16/18 14:30 06/16/18 15:10 Temperature 98.5 F 97.8 F Pulse Rate 68 70 69 Respiratory Rate 18 18 18 Blood Pressure 116/59 L 136/73 133/71 Pulse Oximetry 90 L 97 98 06/16/18 16:00 06/16/18 17:21 06/16/18 20:25 Temperature 97.6 F 98.3 F Pulse Rate 69 71 Respiratory Rate 20 18 Blood Pressure 136/78 151/67 H Pulse Oximetry 95 98 93 L 06/17/18 00:00 06/17/18 04:00 Temperature 98.3 F 98.2 F Pulse Rate 64 64 Respiratory Rate 16 18 Blood Pressure 96/53 L 121/58 L Pulse Oximetry 92 L 93 L Intake & Output 06/16/18 06/17/18 06/17/18 18:59 06:59 18:59 Intake Total 960 / 960 360 / 360 Output Total 300 / 300 1050 / 1050 Balance 660 / 660 -690 / -690 Weight 71.2 kg Intake: Oral 960 / 960 360 / 360 Output: Urine 300 / 300 1050 / 1050 Other: # Incontinent Voids 2 Date of Last Bowel Movement 06/16/18 # Bowel Movements 1 Narrative: GENERAL: Awake alert and oriented 3 talkative and cooperative SKIN: Warm and dry. HEAD: Atraumatic. Normocephalic. NECK: Trachea midline. No JVD. Supple CARDIOVASCULAR: Irregular rhythm, regular rate. S1-S2 no S3 or S4 RESPIRATORY: No accessory muscle use. Decreased breath sounds on the right. GASTROINTESTINAL: Abdomen soft, non-tender, nondistended. MUSCULOSKELETAL: Extremities without clubbing, cyanosis, No LE edema. No obvious deformities. NEUROLOGICAL: Awake and alert. No obvious cranial nerve deficits. Normal speech. INSIGHT AND JUDGEMENT IS LIMITED MOOD AND BEHAVIOR IS SOMEWHAT INAPPROPRIATE - Urinary Catheter Management Straight Cath placed during this visit: yes, but has since been removed by the nurse Reason for continuing: Not indwelling catheter Insertion date: 06/10/18 Insertion time: 11:08 Removal date: 06/10/18 Removal time: 11:09 Assessment and Plan - Plan ASSESSMENT: Large bilateral pleural effusions, s/p left sided thoracentesis yesterday with removal -500cc fluid AMS with syncope, cognition now at/near baseline NSTEMI Cardiomyopathy, EF 25%, presumed ischemic Acute systolic CHF CAD s/p 3vCABG 12/2014 Atrial Fibrillation DM RECOMMENDATION: -large right sided pleural effusion remains. Schedule R-sided thoracentesis today please -continue ASA 81mg daily, atorvastatin 20mg daily, carvedilol to 25mg bid, lisinopril 10mg daily, spironolactone to 25mg daily -change lasix 40mg BID from IV to PO -Lipid profile with AM labs -maintain K+>4; AM labs pending -Monitor I's and O -She will need a left heart catheterization after discharge to evaluate cardiomyopathy as she presented with syncope and NSTEMI. This can be done in outpatient setting with primary spanish professor, Dr. Reid. -close outpatient follow up of renal function and potassium -will sign off, contact with questions. <Bud Klein - Last Filed: 06/17/18 08:33> Physical Exam Vital signs: Vital Signs 06/16/18 10:39 06/16/18 12:00 06/16/18 12:49 Temperature 98.5 F Pulse Rate 68 68 Respiratory Rate 18 Blood Pressure 116/59 L Pulse Oximetry 92 L 90 L 06/16/18 14:30 06/16/18 15:10 06/16/18 16:00 Temperature 97.8 F 97.6 F Pulse Rate 70 69 69 Respiratory Rate 18 18 20 Blood Pressure 136/73 133/71 136/78 Pulse Oximetry 97 98 95 06/16/18 17:21 06/16/18 20:25 06/16/18 20:37 Temperature 98.3 F Pulse Rate 71 70 Respiratory Rate 18 Blood Pressure 151/67 H Pulse Oximetry 98 93 L 06/17/18 00:00 06/17/18 00:42 06/17/18 04:00 Temperature 98.3 F 98.2 F Pulse Rate 64 63 64 Respiratory Rate 16 18 Blood Pressure 96/53 L 121/58 L Pulse Oximetry 92 L 93 L 06/17/18 04:05 Temperature Pulse Rate 64 Respiratory Rate Blood Pressure Pulse Oximetry Intake & Output 06/16/18 06/17/18 06/17/18 18:59 06:59 18:59 Intake Total 960 / 960 360 / 360 Output Total 300 / 300 1050 / 1050 Balance 660 / 660 -690 / -690 Weight 71.2 kg Intake: Oral 960 / 960 360 / 360 Output: Urine 300 / 300 1050 / 1050 Other: # Incontinent Voids 2 Date of Last Bowel Movement 06/16/18 # Bowel Movements 1 - Urinary Catheter Management Straight Cath placed during this visit: no Assessment and Plan - Plan agree with above.
[2018-06-17 07:51] LABS: Baso # (Auto) 0.1 th/mm3 (0.0-0.2); Baso % (Auto) 0.8 % (0.0-2.0); Eos # (Auto) 0.2 th/mm3 (0.0-0.4); Eos % (Auto) 1.4 % (0.0-4.0); Hematocrit 36.9 % (35.0-46.0); Hemoglobin 12.3 gm/dL (11.6-15.3); Lymph # (Auto) 1.8 th/mm3 (1.0-4.8); Lymph % (Auto) 14.6 % (9.0-44.0); Mean Corpuscular HGB Conc 33.3 % (32.0-36.0); Mean Corpuscular Hemoglobin 28.3 pg (27.0-34.0); Mean Corpuscular Volume 85.1 fL (80.0-100.0); Mean Platelet Volume 10.2 fL (7.0-11.0); Mono # (Auto) 0.8 th/mm3 (0.0-0.9); Mono % (Auto) 6.4 % (0.0-8.0); Neut # (Auto) 9.4 th/mm3 (1.8-7.7); Neut % (Auto) 76.8 % (16.0-70.0); Platelet Count 269 th/mm3 (150-450); Red Blood Count 4.34 mil/mm3 (4.00-5.30); Red Cell Distribution Width 15.9 % (11.6-17.2); White Blood Count 12.2 th/mm3 (4.0-11.0)
[2018-06-17 08:01] LABS: Alanine Aminotransferase 44 U/L (10-53); Albumin 2.6 g/dL (3.4-5.0); Anion Gap 8 meq/L (5-15); Aspartate Aminotransferase 19 U/L (15-37); Blood Urea Nitrogen 20 mg/dL (7-18); Calcium 8.6 mg/dL (8.5-10.1); Carbon Dioxide 26.8 meq/L (21.0-32.0); Chloride 105 meq/L (98-107); Glomerular Filtration Rate 66 mL/min (>89); Glucose,Random 169 mg/dL (74-106); Magnesium 2.1 mg/dL (1.5-2.5); Phosphorus 3.3 mg/dL (2.5-4.9); Potassium 3.6 meq/L (3.5-5.1); Sodium 140 meq/L (136-145)
[2018-06-17 08:08] LABS: Alkaline Phosphatase 102 U/L (45-117); Total Protein 6.5 g/dL (6.4-8.2)
[2018-06-17] MEDS: Lisinopril 10 MG Tablet PO SCH (09:53)
[2018-06-17] MEDS: Gabapentin 300 MG Capsule PO SCH ×2 (09:54→20:15)
[2018-06-17] MEDS: Senna/Docusate Sodium 8.6/50 MG Tablet PO SCH ×2 (09:55→20:16)
[2018-06-17] MEDS: Carvedilol 12.5 MG Tablet PO SCH ×2 (09:55→20:16)
[2018-06-17] MEDS: Insulin NovoLOG Aspart Correctional Sugar Inj SQ SCH ×4 (09:56→20:26)
[2018-06-17] MEDS: Spironolactone 25 MG Tablet PO SCH (09:56)
[2018-06-17] MEDS: DUREZOL EACH EYE SCH ×2 (09:57→20:17)
[2018-06-17] MEDS: Timolol 0.5% Drops 5 ML Bottle EACH EYE SCH ×2 (09:57→20:17)
[2018-06-17] MEDS: Furosemide 40 MG Tablet PO SCH ×2 (09:58→18:21)
--- NOTE | 2018-06-17 10:55 | P.PNIM ---
Subjective Interval history: 06-13 seen with caregiver at bedside who comes to check on her daily and on day of admission saw her laying on the floor last seen night before baseline per caregiver is ambulatory with a FFW with a seat patient lives with a significant other who is currently in [place] per patient she tried to get up and fell on day of admission denies any chest pain baseline with left sided weakness 06-14 MEDICATIONS ADJUSTED BY CARDIOLOGY DW RN AND PT AND FAMILY AND CM WILL GET PT AND OT TO EVAL AND TREAT AM LABS INCREASE ACTIVITY 06-15 REFUSED CHEST XRAY NEEDS TO HAVE IT DONE SO WE CAN DETERMINE THERAPIES DW PT AND RN AM LABS STILL SOME SOB 06-16 MEDS ADJUSTED BY CARDIO WILL NEED THORACENTESIS TOMORROW WITH IR IF ABLE TO BE DONE DW RN AND PT AND FAMILY NEEDS TO LET LABS BE DONE STILL SOB 06-17 HAD LEFT THORACENTESIS WITH 500ML OUT ON 06-16 TO HAVE RIGHT THORACENTESIS TODAY DW RN AND PT AM LABS REPLACE POTASSIUM NEEDS PT AND OT MAY NEED SNF VS HHC AT DC AM LABS REPEAT CHEST XRAY IN AM Physical Exam Vital signs: Vital Signs 06/16/18 12:00 06/16/18 12:49 06/16/18 14:30 Temperature 98.5 F 97.8 F Pulse Rate 68 68 70 Respiratory Rate 18 18 Blood Pressure 116/59 L 136/73 Pulse Oximetry 90 L 97 06/16/18 15:10 06/16/18 16:00 06/16/18 17:21 Temperature 97.6 F Pulse Rate 69 69 Respiratory Rate 18 20 Blood Pressure 133/71 136/78 Pulse Oximetry 98 95 98 06/16/18 20:25 06/16/18 20:37 06/17/18 00:00 Temperature 98.3 F 98.3 F Pulse Rate 71 70 64 Respiratory Rate 18 16 Blood Pressure 151/67 H 96/53 L Pulse Oximetry 93 L 92 L 06/17/18 00:42 06/17/18 04:00 06/17/18 04:05 Temperature 98.2 F Pulse Rate 63 64 64 Respiratory Rate 18 Blood Pressure 121/58 L Pulse Oximetry 93 L 06/17/18 08:00 Temperature 98.3 F Pulse Rate 74 Respiratory Rate 18 Blood Pressure 116/68 Pulse Oximetry 91 L Intake & Output 06/16/18 06/17/18 06/17/18 18:59 06:59 18:59 Intake Total 960 / 960 360 / 360 Output Total 300 / 300 1050 / 1050 Balance 660 / 660 -690 / -690 Weight 71.2 kg Intake: Oral 960 / 960 360 / 360 Output: Urine 300 / 300 1050 / 1050 Other: # Incontinent Voids 2 Date of Last Bowel Movement 06/16/18 # Bowel Movements 1 Narrative: GENERAL: Awake alert and oriented 3 talkative and cooperative SKIN: Warm and dry. HEAD: Atraumatic. Normocephalic. NECK: Trachea midline. No JVD. Supple CARDIOVASCULAR: Irregular rhythm, regular rate. S1-S2 no S3 or S4 RESPIRATORY: No accessory muscle use. Decreased breath sounds on the right. GASTROINTESTINAL: Abdomen soft, non-tender, nondistended. MUSCULOSKELETAL: Extremities without clubbing, cyanosis, No LE edema. No obvious deformities. NEUROLOGICAL: Awake and alert. No obvious cranial nerve deficits. Normal speech. INSIGHT AND JUDGEMENT IS LIMITED MOOD AND BEHAVIOR IS SOMEWHAT INAPPROPRIATE - Urinary Catheter Management Straight Cath placed during this visit: yes, but has since been removed by the nurse Reason for continuing: Not indwelling catheter Insertion date: 06/10/18 Insertion time: 11:08 Removal date: 06/10/18 Removal time: 11:09 Results - Labs CBC & Chem 7: 06/17/18 06:44 06/17/18 06:44 Laboratory Results - last 24 hr 06/16/18 06/16/18 06/16/18 11:27 12:03 13:57 WBC RBC Hgb Hct MCV MCH MCHC RDW Plt Count MPV Neut % (Auto) Lymph % (Auto) Jay % (Auto) Eos % (Auto) Baso % (Auto) Neut # (Auto) Lymph # (Auto) Jay # (Auto) Eos # (Auto) Baso # (Auto) WBC Differential Differential Comment PT 12.6 H INR 1.2 APTT 28.8 Sodium Potassium Chloride Carbon Dioxide Anion Gap BUN Creatinine Estimated GFR POC Glucose 244 H Random Glucose Calcium Phosphorus Magnesium Total Bilirubin AST ALT Alkaline Phosphatase Total Protein Albumin Pleural pH 8.5 Pleural RBC Pleural Nuc Cells Pleural Neutrophils Pleural Lymphocytes Pleural Monocytes Pleural Histocytes Pleural Mesothelial Pleural Total Protein 2.1 Pleural LDH 110 Pleural Glucose 228 Pleural Amylase 19 06/16/18 06/16/18 06/16/18 13:57 16:23 20:52 WBC RBC Hgb Hct MCV MCH MCHC RDW Plt Count MPV Neut % (Auto) Lymph % (Auto) Jay % (Auto) Eos % (Auto) Baso % (Auto) Neut # (Auto) Lymph # (Auto) Jay # (Auto) Eos # (Auto) Baso # (Auto) WBC Differential Differential Comment PT INR APTT Sodium Potassium Chloride Carbon Dioxide Anion Gap BUN Creatinine Estimated GFR POC Glucose 221 H 268 H Random Glucose Calcium Phosphorus Magnesium Total Bilirubin AST ALT Alkaline Phosphatase Total Protein Albumin Pleural pH Pleural RBC 1019 H Pleural Nuc Cells 1584 H Pleural Neutrophils 5 Pleural Lymphocytes 80 Pleural Monocytes 1 Pleural Histocytes 8 Pleural Mesothelial 6 Pleural Total Protein Pleural LDH Pleural Glucose Pleural Amylase 06/17/18 06/17/18 06/17/18 06:44 06:44 08:21 WBC 12.2 H RBC 4.34 Hgb 12.3 Hct 36.9 MCV 85.1 MCH 28.3 MCHC 33.3 RDW 15.9 Plt Count 269 MPV 10.2 Neut % (Auto) 76.8 H Lymph % (Auto) 14.6 Jay % (Auto) 6.4 Eos % (Auto) 1.4 Baso % (Auto) 0.8 Neut # (Auto) 9.4 H Lymph # (Auto) 1.8 Jay # (Auto) 0.8 Eos # (Auto) 0.2 Baso # (Auto) 0.1 WBC Differential . Differential Comment Auto diff final PT INR APTT Sodium 140 Potassium 3.6 Chloride 105 Carbon Dioxide 26.8 Anion Gap 8 BUN 20 H Creatinine 0.85 Estimated GFR 66 L POC Glucose 183 H Random Glucose 169 H Calcium 8.6 Phosphorus 3.3 Magnesium 2.1 Total Bilirubin 0.6 AST 19 ALT 44 Alkaline Phosphatase 102 Total Protein 6.5 Albumin 2.6 L Pleural pH Pleural RBC Pleural Nuc Cells Pleural Neutrophils Pleural Lymphocytes Pleural Monocytes Pleural Histocytes Pleural Mesothelial Pleural Total Protein Pleural LDH Pleural Glucose Pleural Amylase Microbiology 06/16/18 13:57 Fluid - Pleural fluid Fungal Smear - Final No fungal elements seen 06/16/18 15:37 Fluid - Pleural fluid Gram Stain - Final - Imaging Impressions Chest X-Ray 06/16/18 00:00 CONCLUSION: 1. Significantly improved left lung aeration following left-sided thoracentesis. No significant pneumothorax. 2. Persistent moderate right pleural effusion and associated right lower lobe airspace disease. Thoracentesis Ultrasound 07/18/18 00:00 CONCLUSION: 1. Uncomplicated ultrasound-guided left thoracentesis. - Procedures 7-18 LEFT SIDE THORACENTESIS 7-19 RIGHT SIDE THORACENTESIS Assessment and Plan - Plan 72 years old female Acute Encephalopathy, - MS improved continue neurological checks.--Much improved per family at the bedside Sepsis (leukocytosis, tachycardia, source of infection, CAP),Lactic Acidosis, LA of 2.9 on admission-trending down lactic acid, and wbc and monitor vital sings. keep normotensive. Pt is meeting sepsis criteria at this time with leukocytosis, tachycardia, and source of infection with community acquired pneumonia. CXR reviewed that revealed haziness overlying the L hemithorax suggestive of effusion, along with parenchymal changes in left lung base suggestive of infiltrate. Blood cultures obtained in ED, follow up with final results continue IV antibiotics, azithromycin and ceftriaxone monitor for fluid overload. monitor kidney function Continue with supportive care Much improved per family at bedside Rhabdomyolysis- resolved- creatinine down to 124 - per care give baseline left sided weakness who came to check on her while significant other is in [place]- saw her on the floor next day when she came to check on her- screaming and hollerng last seen night ago - ambulates with a FWW with a seat - patient significant other is in [place] past few days CPK on admission was found to be 1684- now 124. IVF drop down to 42 cc - with CMP DC IVF today Continue physical therapy and Occupational Therapy Atrial Fibrillation, with presenting RVR- now rate controlled ACS- NSTEMI Hypertension CMP- EF 20-25% with effusion bilateral on XR pt denies any CP. she is asymptomatic at this time. EKG reviewed by admission that revealed no acute changes, no st elevation Now better rate control metoprolol. maintain HR below 90 bpm On [facility] Cardiology ff - medical management BB- changed to Coreg 12.5 mg bid Lisinopril 10 g daily Increase Aldactone to 25 mg daily check doppler of left leg- negative Lasix 40 mg IV q 12 recheck CXR if am- if no improvement- may need thoracentesis per cardiology We will defer to cardiology REFUSED CHEST XRAY TODAY- EXPLAINED NEED TO BE DONE AND REORDERED AM LABS SP LEFT THORACENTESIS 06-16 RIGHT THORACENTESIS ON 7 AM LABS Diabetes Mellitus, type II uncontrolled Hold metformin. Continue Accu-Cheks with sliding scale insulin and monitor blood sugar trends for further intervention. 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 - monitor on IV diuretics - FF BMP History of Glaucoma - restarted eye drops- per family request DVT prophylaxison Eliquis - HOLD SO THAT CAN GET THORACENTESIS Increase activity as breathing tolerates- per patient uses a FWW at home Code Status: FULL CODE Discussed Condition With: RN AND PT AND RADIOLOGY AND CM Discharge Planning: Discussed with case management and patient and family WILL PROBABLY NEED SNF VS C
--- NOTE | 2018-06-17 12:17 | XR ---
EXAM DATE: 06/17/2018 12:06 PM EDT AGE/SEX: 72 years / Female INDICATIONS: Post right side thoracentesis. CLINICAL DATA: This is the patient's subsequent encounter. Patient reports that signs and symptoms h ave been present for 1 day and indicates a pain score of 0/10. MEDICAL/SURGICAL HISTORY: . Stroke. Atrial fibrillation. Diabetes. Hard of hearing. Myocardial infarction. CABG. COMPARISON: [facility] – [place], CHEST EXPIRATION ONLY, 06/16/2018. . FINDINGS: A single AP erect portable expiratory view of the chest was obtained and demonstrates that the patien t is status post median sternotomy. There is been interval decrease in the airspace disease at the ri ght lung base with mild patchy opacity remaining at the left lung base. There is no pneumothorax. The heart size remains within normal limits. There are atherosclerotic changes in the aorta. CONCLUSION: 1. No pneumothorax status post thoracentesis. 2. Interval decrease in airspace disease at the right lung base. There is mild patchy residual both lung bases. Electronically signed by: Jose G Lee MD 06/17/2018 12:16 PM EDT
--- NOTE | 2018-06-17 14:44 | US ---
EXAM DATE: 06/17/2018 12:09 PM EDT AGE/SEX: 72 years / Female INDICATIONS: Right pleural effusion. CLINICAL DATA: This is the patient's initial encounter. Patient reports that signs and symptoms have been present for 3 days and indicates a pain score of 4/10. MEDICAL/SURGICAL HISTORY: Stroke. Atrial fibrillation. Diabetes. Hard of hearing. Myocardial in farction. CABG. COMPARISON: No prior exams available for comparison. FLUID: Total volume of 420 cc of clear, yellow fluid was removed. Fluid was discarded. Thoracentesis was therapeutic only. . . TECHNIQUE: Ultrasound guidance for thoracentesis. Thoracentesis. The risks, benefits, and alternatives to ultrasound guided thoracentesis were explained to the patien t in lay simple terms, including the risk of bleeding and infection. Written and verbal informed con sent was obtained. Appropriate area for right thoracentesis was marked under ultrasound guidance with the patient in the upright position. Overlying skin was prepped and draped in the usual sterile fashion and with local anesthetic, a dermatotomy was made with an 11 blade scalpel. A 6 [place] thoracentesis catheter was placed in the pleural space and fluid was removed. Catheter was then removed and a sterile dressing applied. There were no immediate complications. The patient tolerated the procedure well and the lef t the ultrasound suite in stable condition. Chest radiograph is to be obtained. FINDINGS: Moderate right-sided pleural effusion. CONCLUSION: 1. Ultrasound-guided right-sided thoracentesis, as above. Electronically signed by: Nicolás Garduno MD 06/17/2018 2:42 PM EDT
[2018-06-17] MEDS: Azithromycin Inj 500 MG in Sodium Chlor 0.9% Inj 250 ML IV.SIG SCH (15:06)
[2018-06-17] MEDS ORDERED: Lidocaine 1% Inj 30 ML Vial I-DERMAL ONE (15:38)
[2018-06-17] MEDS: BROMFENAC EACH EYE SCH (20:18)
[2018-06-18 08:39] LABS: Baso # (Auto) 0.1 th/mm3 (0.0-0.2); Baso % (Auto) 0.3 % (0.0-2.0); Eos # (Auto) 0.2 th/mm3 (0.0-0.4); Hematocrit 36.3 % (35.0-46.0); Hemoglobin 11.7 gm/dL (11.6-15.3); Lymph # (Auto) 1.7 th/mm3 (1.0-4.8); Lymph % (Auto) 10.8 % (9.0-44.0); Mean Corpuscular HGB Conc 32.2 % (32.0-36.0); Mean Corpuscular Hemoglobin 27.6 pg (27.0-34.0); Mean Corpuscular Volume 85.8 fL (80.0-100.0); Mean Platelet Volume 10.7 fL (7.0-11.0); Mono # (Auto) 0.7 th/mm3 (0.0-0.9); Mono % (Auto) 4.7 % (0.0-8.0); Neut # (Auto) 13.2 th/mm3 (1.8-7.7); Neut % (Auto) 83.2 % (16.0-70.0); Platelet Count 307 th/mm3 (150-450); Red Blood Count 4.23 mil/mm3 (4.00-5.30); Red Cell Distribution Width 16.3 % (11.6-17.2); White Blood Count 15.9 th/mm3 (4.0-11.0)
[2018-06-18 09:06] LABS: Albumin 2.5 g/dL (3.4-5.0); Anion Gap 12 meq/L (5-15); Aspartate Aminotransferase 14 U/L (15-37); Blood Urea Nitrogen 18 mg/dL (7-18); Calcium 9.2 mg/dL (8.5-10.1); Carbon Dioxide 23.6 meq/L (21.0-32.0); Chloride 103 meq/L (98-107); Glomerular Filtration Rate 76 mL/min (>89); Glucose,Random 148 mg/dL (74-106); Magnesium 2.3 mg/dL (1.5-2.5); Potassium 3.8 meq/L (3.5-5.1); Sodium 139 meq/L (136-145)
[2018-06-18 09:12] LABS: Alanine Aminotransferase 32 U/L (10-53); Alkaline Phosphatase 92 U/L (45-117); Phosphorus 3.2 mg/dL (2.5-4.9); Total Protein 6.4 g/dL (6.4-8.2)
[2018-06-18] MEDS: Insulin NovoLOG Aspart Correctional Sugar Inj SQ SCH ×4 (09:18→22:58)
--- NOTE | 2018-06-18 09:19 | P.PNIM ---
Subjective Interval history: f/u; encephalopathy/ cardiomyopathy resting comfortably with no distress. has minimal to mild pain to left lateral chest wall. otherwise no new complaints. Physical Exam Vital signs: Vital Signs 06/17/18 11:00 06/17/18 11:13 06/17/18 12:00 Temperature 98.2 F 98.6 F Pulse Rate 81 80 78 Respiratory Rate 18 16 Blood Pressure 155/69 H 163/66 H Pulse Oximetry 92 L 93 L 06/17/18 12:05 06/17/18 12:20 06/17/18 14:06 Temperature 98.5 F Pulse Rate 77 71 Respiratory Rate 18 18 Blood Pressure 136/72 124/63 Pulse Oximetry 90 L 93 L 06/17/18 16:00 06/17/18 17:00 06/17/18 20:00 Temperature 97.8 F 98.4 F Pulse Rate 72 72 74 Respiratory Rate 16 18 Blood Pressure 113/55 L 117/56 L Pulse Oximetry 92 L 93 L 06/17/18 20:22 06/17/18 22:16 06/17/18 23:49 Temperature Pulse Rate 73 64 Respiratory Rate Blood Pressure Pulse Oximetry 93 L 06/18/18 00:00 06/18/18 03:57 06/18/18 04:00 Temperature 98.6 F 99.2 F Pulse Rate 67 66 68 Respiratory Rate 16 16 Blood Pressure 92/58 L 106/57 L Pulse Oximetry 97 96 Intake & Output 06/17/18 06/18/18 06/18/18 18:59 06:59 18:59 Intake Total 480 / 480 360 / 360 Balance 480 / 480 360 / 360 Weight 69.5 kg Intake: Oral 480 / 480 360 / 360 Other: # Voids 3 # Incontinent Voids 3 # Urine Diapers 2 Date of Last Bowel Movement 06/17/18 06/17/18 # Bowel Movements 0 1 - Constitutional no acute distress - Routine Respiratory Exam Present: CTA bilaterally - Routine Cardiovascular Exam Present: RRR - Routine Abdominal Exam Present: soft - Routine Extremities Exam Comments: no pedal edema. - Routine Neurological Exam Present: alert - Urinary Catheter Management Straight Cath placed during this visit: yes, but has since been removed by the nurse Reason for continuing: Not indwelling catheter Insertion date: 06/10/18 Insertion time: 11:08 Removal date: 06/10/18 Removal time: 11:09 Results - Labs CBC & Chem 7: 06/18/18 06:31 06/18/18 06:31 Laboratory Results - last 24 hr 06/17/18 06/17/18 06/18/18 17:34 19:28 06:31 WBC 15.9 H RBC 4.23 Hgb 11.7 Hct 36.3 MCV 85.8 MCH 27.6 MCHC 32.2 RDW 16.3 Plt Count 307 MPV 10.7 Neut % (Auto) 83.2 H Lymph % (Auto) 10.8 Smyth % (Auto) 4.7 Eos % (Auto) 1.0 Baso % (Auto) 0.3 Neut # (Auto) 13.2 H Lymph # (Auto) 1.7 Smyth # (Auto) 0.7 Eos # (Auto) 0.2 Baso # (Auto) 0.1 WBC Differential . Differential Comment Auto diff final Sodium Potassium Chloride Carbon Dioxide Anion Gap BUN Creatinine Estimated GFR POC Glucose 346 H 293 H Random Glucose Calcium Magnesium AST Albumin 06/18/18 06/18/18 06:31 08:10 WBC RBC Hgb Hct MCV MCH MCHC RDW Plt Count MPV Neut % (Auto) Lymph % (Auto) Smyth % (Auto) Eos % (Auto) Baso % (Auto) Neut # (Auto) Lymph # (Auto) Smyth # (Auto) Eos # (Auto) Baso # (Auto) WBC Differential Differential Comment Sodium 139 Potassium 3.8 Chloride 103 Carbon Dioxide 23.6 Anion Gap 12 BUN 18 Creatinine 0.75 Estimated GFR 76 L POC Glucose 185 H Random Glucose 148 H Calcium 9.2 Magnesium 2.3 AST 14 L Albumin 2.5 L Microbiology 06/16/18 15:37 Fluid - Pleural fluid Gram Stain - Final 06/16/18 15:37 Fluid - Pleural fluid Body Fluid Culture - Preliminary No growth in 48 hours 06/16/18 13:57 Fluid - Pleural fluid Fungal Smear - Final No fungal elements seen - Imaging Impressions Chest X-Ray 06/17/18 00:00 CONCLUSION: 1. No pneumothorax status post thoracentesis. 2. Interval decrease in airspace disease at the right lung base. There is mild patchy residual both lung bases. Thoracentesis Ultrasound 06/17/18 00:00 CONCLUSION: 1. Ultrasound-guided right-sided thoracentesis, as above. - Procedures - LEFT SIDE THORACENTESIS 7-19 RIGHT SIDE THORACENTESIS Assessment and Plan - Plan Acute Encephalopathy, - Mental status improved Sepsis due to pneumonia Blood cultures obtained in ED, follow up with final results continue IV antibiotics, azithromycin and ceftriaxone blood cultures negative. Rhabdomyolysis- resolved- Continue physical therapy and Occupational Therapy Atrial Fibrillation, with presenting RVR- now rate controlled ACS- NSTEMI Hypertension CMP- EF 20-25% with effusion bilateral on XR s/p bilateral thoracentesis pt denies any CP. she is asymptomatic at this time. On el[facility] Cardiology ff - medical management BB- changed to Coreg 12.5 mg bid Lisinopril 10 g daily Aldactone 25 mg daily continue lasix needs cardiac cath- this can be done as outpatient per cardiology. Diabetes Mellitus, type II uncontrolled Hold metformin. Continue Accu-Cheks with sliding scale insulin and monitor blood sugar trends for further intervention. 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 History of Glaucoma - restarted eye drops- per family request DVT prophylaxison Eliquis - Discharge Planning: d/w the patient regarding SNF; will consult case management. dc planning within the next 24 hrs.
--- NOTE | 2018-06-18 09:49 | XR ---
EXAM DATE: 06/18/2018 9:41 AM EDT AGE/SEX: 72 years / Female INDICATIONS: . Shortness of breath. CLINICAL DATA: This is the patient's subsequent encounter. Patient reports that signs and symptoms h ave been present for 4 - 6 days and indicates a pain score of 0/10. MEDICAL/SURGICAL HISTORY: Cardiovascular disease. Diabetes mellitus type II. CABG. [place] [facility] [place]. . FINDINGS: Small bilateral pleural effusions are seen. There is evidence for prior median sternotomy. Focal consolidation is not seen although consolidation and/or partial collapse left lung base is diff icult to exclude. CONCLUSION: Small bilateral pleural effusions and left lung base consolidation is difficult to exclude. Electronically signed by: Charo Gonzalez MD 06/18/2018 9:48 AM EDT
[2018-06-18] MEDS: Lisinopril 10 MG Tablet PO SCH (09:51)
[2018-06-18] MEDS: Spironolactone 25 MG Tablet PO SCH (09:51)
[2018-06-18] MEDS: Furosemide 40 MG Tablet PO SCH ×2 (09:51→18:20)
[2018-06-18] MEDS: Senna/Docusate Sodium 8.6/50 MG Tablet PO SCH ×2 (09:51→22:59)
[2018-06-18] MEDS: Timolol 0.5% Drops 5 ML Bottle EACH EYE SCH ×2 (09:52→23:00)
[2018-06-18] MEDS: Gabapentin 300 MG Capsule PO SCH ×2 (09:52→22:57)
[2018-06-18] MEDS: DUREZOL EACH EYE SCH ×2 (09:52→22:58)
[2018-06-18] MEDS: Carvedilol 12.5 MG Tablet PO SCH ×2 (12:03→22:58)
[2018-06-18] MEDS: Azithromycin Inj 500 MG in Sodium Chlor 0.9% Inj 250 ML IV.SIG SCH (13:00)
[2018-06-18] MEDS: BROMFENAC EACH EYE SCH (22:59)
[2018-06-19] MEDS ORDERED: Sodium Chlor 0.9% Inj 250 ML IV.SIG ONE (01:09)
[2018-06-19 05:08] VITALS: TEMP 97.8
--- NOTE | 2018-06-19 09:09 | P.PNIM ---
Subjective Interval history: in no acute distress. looks comfortable. BP trend noted. d/w the RN and no acute issues over night. Physical Exam Vital signs: Vital Signs 06/18/18 09:37 06/18/18 12:00 06/18/18 16:00 Temperature 97.9 F Pulse Rate 74 73 77 Respiratory Rate 20 Blood Pressure 123/60 Pulse Oximetry 90 L 06/18/18 20:00 06/19/18 00:00 06/19/18 03:30 Temperature 98 F 97.6 F Pulse Rate 74 65 Respiratory Rate 16 16 Blood Pressure 113/55 L 84/58 L 100/56 L Pulse Oximetry 92 L 92 L 06/19/18 04:00 Temperature 97.8 F Pulse Rate 63 Respiratory Rate 16 Blood Pressure 94/50 L Pulse Oximetry 93 L Intake & Output 06/18/18 06/19/18 06/19/18 18:59 06:59 18:59 Intake Total 480 / 480 240 / 240 Output Total 650 / 650 Balance 480 / 480 -410 / -410 Weight 69.9 kg Intake: Oral 480 / 480 240 / 240 Output: Urine 650 / 650 Other: # Voids 3 3 Date of Last Bowel Movement 06/18/18 # Bowel Movements 0 - Constitutional no acute distress - Routine Respiratory Exam Present: CTA bilaterally - Routine Cardiovascular Exam Present: RRR - Routine Abdominal Exam Present: soft - Routine Extremities Exam Comments: no pedal edema. - Routine Neurological Exam Present: alert - Urinary Catheter Management Straight Cath placed during this visit: yes, but has since been removed by the nurse Reason for continuing: Not indwelling catheter Insertion date: 06/10/18 Insertion time: 11:08 Removal date: 06/10/18 Removal time: 11:09 Results - Labs CBC & Chem 7: 06/18/18 06:31 06/18/18 06:31 Laboratory Results - last 24 hr 06/18/18 06/18/18 06/18/18 06:31 12:21 16:55 Sodium 139 Potassium 3.8 Chloride 103 Carbon Dioxide 23.6 Anion Gap 12 BUN 18 Creatinine 0.75 Estimated GFR 76 L POC Glucose 221 H 270 H Random Glucose 148 H Calcium 9.2 Phosphorus 3.2 Magnesium 2.3 Total Bilirubin 0.7 AST 14 L ALT 32 Alkaline Phosphatase 92 Total Protein 6.4 Albumin 2.5 L 06/18/18 06/19/18 20:39 08:30 Sodium Potassium Chloride Carbon Dioxide Anion Gap BUN Creatinine Estimated GFR POC Glucose 282 H 181 H Random Glucose Calcium Phosphorus Magnesium Total Bilirubin AST ALT Alkaline Phosphatase Total Protein Albumin Microbiology 06/16/18 15:37 Fluid - Pleural fluid Gram Stain - Final 06/16/18 15:37 Fluid - Pleural fluid Body Fluid Culture - Final No growth in 72 hours (aerobically and anaerobically ) 06/16/18 13:57 Fluid - Pleural fluid Acid Fast Bacilli Smear - Final No acid fast bacilli seen - Imaging Impressions Chest X-Ray 06/18/18 06:00 CONCLUSION: Small bilateral pleural effusions and left lung base consolidation is difficult to exclude. - Procedures 7- LEFT SIDE THORACENTESIS 7- RIGHT SIDE THORACENTESIS Assessment and Plan - Plan Acute Encephalopathy, - Mental status improved Sepsis due to pneumonia Blood cultures obtained in ED, negative so far. continue antibiotics. Rhabdomyolysis- resolved- Continue physical therapy and Occupational Therapy Atrial Fibrillation, with presenting RVR- now rate controlled ACS- NSTEMI Hypertension CMP- EF 20-25% with effusion bilateral on XR s/p bilateral thoracentesis pt denies any CP. she is asymptomatic at this time. On el[facility] Cardiology ff - medical management BB- changed to Coreg 12.5 mg bid Lisinopril 10 mg daily Aldactone 25 mg daily continue lasix needs cardiac cath- this can be done as outpatient per cardiology. Diabetes Mellitus, type II uncontrolled Hold metformin. Continue Accu-Cheks with sliding scale insulin and monitor blood sugar trends for further intervention. started her on home NPH- DM neuropathy - continue gabapentin . Elevated LFTs- can be from rhabdomyolysis- improving.ff LFTs Suspect chronic kidney disease stage III, non oliguric will monitor and avoid nephrotoxins. History of Glaucoma - restarted eye drops- per family request DVT prophylaxison Eliquis - Discharge Planning: dc to SNF when arrangements made. see med list. f/u; pcp. d/w the patient, RN and previously the case management. time spent 35 min.
[2018-06-19] MEDS ORDERED: Carvedilol 12.5 MG Tablet PO SCH (09:15)
--- NOTE | 2018-06-19 09:15 | P.DS ---
Date of admission: 06/10/18 13:34 Primary care physician: Robbie Dunn MD Brief History from admission: patient is a 72-year-old female with a pmhx of UT, CVA, A-fib, DM who presents to the emergency department via EMS for altered mental status. EMS states that the patient was found lying on her floor, in her own feces, in the bedroom, with altered mental status. EMS states that the patient's neighbor noted she was altered and lying on the floor, duration unknown. Patient currently only reports bilateral knee pain and L hip pain. Pt is a limited historian and thingks the year is 2020 and does not know the current month. She denies falling and denies having an altered mental status. She states " I was sitting on the floor to change my clothe since I had wet my patns". She denies any headache, chest pain, shortness breath, nausea, vomiting, or abdominal pain. DS: Medications - Discharge Medications Prescriptions: aspirin 81 mg PO DAILY 30 Days #30 tab furosemide 40 mg PO BID@0900,1800 30 Days tab lisinopril 10 mg PO DAILY 30 Days #30 tab spironolactone [Aldactone] 25 mg PO DAILY 30 Days #30 tab DS: Summary Hospital Course: patient was admitted with encephalopathy, pneumonia, A-fib and ACS. she was started on antibiotics. blood cultures remained negative. she was afebrile prior to discharge.she had thoracentesis during this admission. she was seen by cardiology , recommended cardiac cath as outpatient and medical treatment at this time.her IV antibiotics will be switched to oral to complete the course of therapy. - Time Spent with Patient Total time spent providing and/or coordinating discharge services: Greater than 30 minutes (35 min.) - Quality: VTE Deep Vein Thrombosis/Pulmonary Embolism Present on Admission: No Exam Vital signs: Vital Signs 06/18/18 09:37 06/18/18 12:00 06/18/18 16:00 Temperature 97.9 F Pulse Rate 74 73 77 Respiratory Rate 20 Blood Pressure 123/60 Pulse Oximetry 90 L 06/18/18 20:00 06/19/18 00:00 06/19/18 03:30 Temperature 98 F 97.6 F Pulse Rate 74 65 Respiratory Rate 16 16 Blood Pressure 113/55 L 84/58 L 100/56 L Pulse Oximetry 92 L 92 L 06/19/18 04:00 Temperature 97.8 F Pulse Rate 63 Respiratory Rate 16 Blood Pressure 94/50 L Pulse Oximetry 93 L Intake & Output 06/18/18 06/19/18 06/19/18 18:59 06:59 18:59 Intake Total 480 / 480 240 / 240 Output Total 650 / 650 Balance 480 / 480 -410 / -410 Weight 69.9 kg Intake: Oral 480 / 480 240 / 240 Output: Urine 650 / 650 Other: # Voids 3 3 Date of Last Bowel Movement 06/18/18 # Bowel Movements 0 Results Procedures completed during hospitalization: 7- LEFT SIDE THORACENTESIS - RIGHT SIDE THORACENTESIS Labs on day of discharge: Labs from last 24 hours 06/19/18 06/18/18 06/18/18 08:30 20:39 16:55 POC Glucose 181 H 282 H 270 H Phosphorus Total Bilirubin ALT Alkaline Phosphatase Total Protein 06/18/18 06/18/18 12:21 06:31 POC Glucose 221 H Phosphorus 3.2 Total Bilirubin 0.7 ALT 32 Alkaline Phosphatase 92 Total Protein 6.4 - Impressions ITS Impressions Head CT 06/10/18 10:14 CONCLUSION: 1. No focal or acute intracranial hemorrhage. 2. 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 3. Bilateral cortical atrophy. Knee X-Ray 06/10/18 10:14 CONCLUSION: Unremarkable plain films for patient's age. No acute fracture or joint dislocation. Pelvis X-Ray 06/10/18 10:14 CONCLUSION: No acute fracture or joint dislocation. Venous Doppler Study 06/12/18 00:00 CONCLUSION: No evidence of deep venous thrombosis. Thoracentesis Ultrasound 06/17/18 00:00 CONCLUSION: 1. Ultrasound-guided right-sided thoracentesis, as above. Chest X-Ray 06/18/18 06:00 CONCLUSION: Small bilateral pleural effusions and left lung base consolidation is difficult to exclude. Discharge Plan - Discharge Disposition Patient Disposition: 03 Discharge to SNF - Discharge Condition Condition: Stable - Physicians Team Primary Care Provider: Robbie Dunn Attending Provider: Leia Allen Other Providers: John Geiger MD
[2018-06-19] MEDS: Gabapentin 300 MG Capsule PO SCH (09:36)
[2018-06-19] MEDS: Senna/Docusate Sodium 8.6/50 MG Tablet PO SCH (09:36)
[2018-06-19] MEDS: Lisinopril 10 MG Tablet PO SCH (09:36)
[2018-06-19 09:37] VITALS: BP 140/63; RESP 20; O2SAT 95
[2018-06-19] MEDS: Insulin NovoLOG Aspart Correctional Sugar Inj SQ SCH (09:38)
[2018-06-19] MEDS: Spironolactone 25 MG Tablet PO SCH (09:38)
[2018-06-19] MEDS: Timolol 0.5% Drops 5 ML Bottle EACH EYE SCH (09:41)
[2018-06-19] MEDS: Furosemide 40 MG Tablet PO SCH (09:44)
[2018-06-19] MEDS ORDERED: levoFLOXacin 500 MG Tablet PO SCH (10:00)
[2018-06-19 20:32] VITALS: PULSE 71
== END 2018-06-19 12:03 ==
LOC: NEPC 09:59 → NEDA 13:34 → NEDH 19:17 → N04 06-11 14:09
PROVIDERS: ADMIT Internal Medicine; ATTEND Internal Medicine
DX: I21.4 Non-ST elevation (NSTEMI) myocardial infarction; I13.0 Hypertensive heart and chronic kidney disease with heart failure and stage 1 through stage 4 chronic kidney disease, or unspecified chronic kidney disease; E11.40 Type 2 diabetes mellitus with diabetic neuropathy, unspecified; I11.0 Hypertensive heart disease with heart failure; Z79.01 Long term (current) use of anticoagulants; H91.90 Unspecified hearing loss, unspecified ear; R79.89 Other specified abnormal findings of blood chemistry; Z79.84 Long term (current) use of oral hypoglycemic drugs; M62.82 Rhabdomyolysis; N18.3 Chronic kidney disease, stage 3 (moderate); Z79.899 Other long term (current) drug therapy; J90 Pleural effusion, not elsewhere classified; G93.40 Encephalopathy, unspecified; Z88.0 Allergy status to penicillin; E11.22 Type 2 diabetes mellitus with diabetic chronic kidney disease; J18.9 Pneumonia, unspecified organism; M25.561 Pain in right knee; A41.9 Sepsis, unspecified organism; W18.30XA Fall on same level, unspecified, initial encounter; I25.5 Ischemic cardiomyopathy; H40.9 Unspecified glaucoma; E87.2 Acidosis; Z82.49 Family history of ischemic heart disease and other diseases of the circulatory system; M25.552 Pain in left hip; R32 Unspecified urinary incontinence; Z86.73 Personal history of transient ischemic attack (TIA), and cerebral infarction without residual deficits; M25.562 Pain in left knee; Z16.24 Resistance to multiple antibiotics; Y92.003 Bedroom of unspecified non-institutional (private) residence as the place of occurrence of the external cause; R00.0 Tachycardia, unspecified; I25.10 Atherosclerotic heart disease of native coronary artery without angina pectoris; I48.91 Unspecified atrial fibrillation; Z95.1 Presence of aortocoronary bypass graft; I25.2 Old myocardial infarction; I50.21 Acute systolic (congestive) heart failure